=== PATIENT | female | born 1955 | race Caucasian/White ===

== ENCOUNTER → 2017-08-26 | Outpatient (CLI) | payer MEDICARE, OTHER | LOC: M PAIN 11:15 | DX: M79.1 Myalgia (principal); M54.2 Cervicalgia; M54.40 Lumbago with sciatica, unspecified side; G43.909 Migraine, unspecified, not intractable, without status migrainosus; E03.9 Hypothyroidism, unspecified; F17.210 Nicotine dependence, cigarettes, uncomplicated; Z79.899 Other long term (current) drug therapy; Z88.1 Allergy status to other antibiotic agents | CPT/HCPCS: G0463 ==

== ENCOUNTER → 2017-10-09 | Outpatient (CLI) | payer MEDICARE, OTHER ==
[~2017-10-09] MED LIST: BUPIVACAINE HCL 0.25% 10 ML VIAL As Ordered; BUPIVACAINE HCL 0.25% 30 ML VIAL As Ordered; TRIAMCINOLONE ACETONIDE SUSP 40 MG/ML VIAL (J3301) As Ordered; diazePAM 5 MG TAB As Ordered; oxyCODONE 5MG TAB As Ordered
== END ==
LOC: M PAIN 15:15
DX: M79.1 Myalgia (principal); E03.9 Hypothyroidism, unspecified; Z79.899 Other long term (current) drug therapy; Z88.8 Allergy status to other drugs, medicaments and biological substances
CPT/HCPCS: J3301

== ENCOUNTER → 2017-10-27 | Outpatient (CLI) | payer MEDICARE, OTHER | LOC: M PAIN 13:45 | DX: M54.2 Cervicalgia (principal); M54.40 Lumbago with sciatica, unspecified side; M79.1 Myalgia; G43.909 Migraine, unspecified, not intractable, without status migrainosus; M19.90 Unspecified osteoarthritis, unspecified site; E03.9 Hypothyroidism, unspecified; F41.9 Anxiety disorder, unspecified; G47.30 Sleep apnea, unspecified; F17.200 Nicotine dependence, unspecified, uncomplicated; Z79.899 Other long term (current) drug therapy; Z88.8 Allergy status to other drugs, medicaments and biological substances; Z98.84 Bariatric surgery status | CPT/HCPCS: G0463 ==

== ENCOUNTER → 2017-11-14 | Outpatient (CLI) | payer MEDICARE, OTHER | LOC: M PAIN 11:45 | DX: G89.29 Other chronic pain (principal); M79.1 Myalgia; G43.709 Chronic migraine without aura, not intractable, without status migrainosus; M54.5 Low back pain; G47.30 Sleep apnea, unspecified; E03.9 Hypothyroidism, unspecified; F41.9 Anxiety disorder, unspecified; Z88.1 Allergy status to other antibiotic agents | CPT/HCPCS: J3301 ==

== ENCOUNTER → 2018-01-05 | Outpatient (CLI) | payer MEDICARE, OTHER | LOC: M PAIN 11:45 | DX: M79.1 Myalgia (principal); M54.2 Cervicalgia; M54.40 Lumbago with sciatica, unspecified side; M96.1 Postlaminectomy syndrome, not elsewhere classified; G43.909 Migraine, unspecified, not intractable, without status migrainosus; M19.90 Unspecified osteoarthritis, unspecified site; G47.30 Sleep apnea, unspecified; E03.9 Hypothyroidism, unspecified; F41.9 Anxiety disorder, unspecified; F17.200 Nicotine dependence, unspecified, uncomplicated; Z79.899 Other long term (current) drug therapy; Z88.8 Allergy status to other drugs, medicaments and biological substances; Z98.84 Bariatric surgery status | CPT/HCPCS: G0463 ==

== ENCOUNTER → 2018-01-12 | Outpatient (CLI) | payer MEDICARE, OTHER ==
[~2018-01-12] MED LIST changes: -BUPIVACAINE HCL 0.25% 10 ML VIAL As Ordered; -BUPIVACAINE HCL 0.25% 30 ML VIAL As Ordered; +ISOVUE-M 300 61% 15ML VIAL (Q9967) As Ordered; +LIDOCAINE 1% SDV INJ 30 ML VIAL As Ordered; -TRIAMCINOLONE ACETONIDE SUSP 40 MG/ML VIAL (J3301) As Ordered; +diphenhydrAMINE 25 MG CAP As Ordered; +methylPREDNISolone SUSP 40 MG/ML (DEPO-medrol) VIAL (J1030) As Ordered
== END ==
LOC: M PAIN 10:30
DX: G89.29 Other chronic pain (principal); M96.1 Postlaminectomy syndrome, not elsewhere classified; G43.709 Chronic migraine without aura, not intractable, without status migrainosus; G47.30 Sleep apnea, unspecified; E03.9 Hypothyroidism, unspecified; F41.9 Anxiety disorder, unspecified; M54.81 Occipital neuralgia; F17.210 Nicotine dependence, cigarettes, uncomplicated; Z79.899 Other long term (current) drug therapy; Z98.1 Arthrodesis status; Z98.84 Bariatric surgery status; Z88.1 Allergy status to other antibiotic agents
CPT/HCPCS: J1030

== ENCOUNTER → 2018-01-29 | Outpatient (CLI) | payer MEDICARE, OTHER | LOC: M PAIN 14:15 | DX: M96.1 Postlaminectomy syndrome, not elsewhere classified (principal); M47.897 Other spondylosis, lumbosacral region; G43.909 Migraine, unspecified, not intractable, without status migrainosus; E03.9 Hypothyroidism, unspecified; F41.9 Anxiety disorder, unspecified; G47.30 Sleep apnea, unspecified; M19.90 Unspecified osteoarthritis, unspecified site; F17.200 Nicotine dependence, unspecified, uncomplicated; Z79.899 Other long term (current) drug therapy; Z88.8 Allergy status to other drugs, medicaments and biological substances | CPT/HCPCS: G0463 ==

== ENCOUNTER → 2019-03-18 | Outpatient (CLI) | payer MEDICARE, OTHER ==
[~2019-03-18] MED LIST changes: +ATIV0.5T3 PO; +CELE1CAP4 PO; +CYCL7.5T2 PO; +CYMB60CA3 PO; +GREE150C3 PO; +GREE400C PO; -ISOVUE-M 300 61% 15ML VIAL (Q9967) As Ordered; +LEVO25TABR GT; -LIDOCAINE 1% SDV INJ 30 ML VIAL As Ordered; +MORP15TA2 PO; +NORCOBULK PO; +PROV100T2 PO; +RELP40TA PO; +SYNT25TA PO; +[UNRECOGNIZED DRUG - OTHER]; -diazePAM 5 MG TAB As Ordered; -diphenhydrAMINE 25 MG CAP As Ordered; -methylPREDNISolone SUSP 40 MG/ML (DEPO-medrol) VIAL (J1030) As Ordered; -oxyCODONE 5MG TAB As Ordered
--- NOTE | 2019-04-07 02:02 | ECWPNPC ---
PATIENT NAME: LOYD BURNETT : 1955 GENDER: FEMALE VISIT DATE: 03/18/2019 DISCHARGE DATE: 03/18/19850 VISIT LOCKED DATE TIME: PHYSICIAN: GANESH MEDEL RESOURCE: GANESH MEDEL REASON FOR APPOINTMENT 1. PREVIOUS PT- REESTABLISH CARE LOW BACK HISTORY OF PRESENT ILLNESS HISTORY OF PRESENT ILLNESS: HERE FOR F/U OF CHRONIC LBP WITH HX OF LUMBAR FUSION IN 2006.REPORTING NEW ONSET OF RIGHT LBP WITH RADIATION INTO RIGHT THIGH.RATING PAIN VAS 8/10. PAIN THE PATIENT DESCRIBES THE PAIN... FALL RISK SCREENING: SCREENING :NO FALLS REPORTED IN THE LAST YEAR CURRENT MEDICATIONS TAKING LEVOTHYROXINE SODIUM 75 MCG TABLET 1 TABLET ON AN EMPTY STOMACH IN THE MORNING ORALLY ONCE A DAY TAKING FISH OIL 1200 MG CAPSULE DELAYED RELEASE 2 CAPSULE ORALLY TWICE A DAY TAKING CELEBREX 100 MG CAPSULE 1 CAPSULE WITH FOOD ORALLY BID TAKING [id number] 50-300-40 MG CAPSULE 1 CAPSULE NEEDED ORALLY EVERY 4 HRS NEEDED TAKING FUROSEMIDE 20 MG TABLET 1 TABLET ORALLY ONCE A DAY TAKING POTASSIUM CHLORIDE ANNETTE ER 10 MEQ TABLET EXTENDED RELEASE 1 TABLET WITH FOOD ORALLY ONCE A DAY TAKING MULTIVITAMIN ADULT - TABLET ORALLY TWICE DAILY TAKING GABAPENTIN 300 MG TABLET 1 TABLET ORALLY FOUR TIMES A DAY TAKING FLUTICASONE PROPIONATE 50 MCG/ACT SUSPENSION 1 SPRAY IN EACH NOSTRIL NASALLY ONCE A DAY TAKING BUPROPION HCL 75 MG TABLET 1 TABLET ORALLY BID TAKING VOLTAREN 1 % GEL TRANSDERMAL TAKING RELPAX 40 MG TABLET 1 TABLET NEEDED ONE TIME ORALLY ONCE A DAY TAKING METOCLOPRAMIDE HCL 5 MG TABLET ORALLY NEEDED TAKING CALCIUM PLUS VITAMIN D 600-100 MG-UNIT CAPSULE 1 CAPSULE WITH A MEAL ORALLY ONCE A DAY TAKING ZOLPIDEM TARTRATE 10 MG TABLET 1 TABLET AT BEDTIME NEEDED ORALLY ONCE A DAY TAKING TIZANIDINE HCL 4 MG TABLET 1 TABLET NEEDED ORALLY THREE TIMES A DAY 30 TAB SHOULD LAST 30 DAYS TAKING MAGNESIUM 500 MG TABLET 1 TABLET WITH A MEAL ORALLY BID TAKING PEPCID 20 MG TABLET 1 TABLET ORALLY BID TAKING ZONISAMIDE 100 MG CAPSULE 1 CAPSULE ORALLY BID NOT-TAKING FAMOTIDINE 20 MG TABLET 1 TABLET AT BEDTIME ORALLY TWICE A DAY NOT-TAKING BACLOFEN 10 MG TABLET 1 TABLET WITH FOOD OR MILK ORALLY TWO TIMES A DAY NOT-TAKING TOPIRAMATE 100 MG TABLET 1 TABLET ORALLY TWICE A DAY NOT-TAKING LOTEMAX 0.5 % SUSPENSION 1 DROP INTO AFFECTED EYE OPHTHALMIC FOUR TIMES A DAY MEDICATION LIST REVIEWED AND RECONCILED WITH THE PATIENT PAST MEDICAL HISTORY CHRONIC MIGRAINE OCCIPITAL NEURALGIA, CERVICALGIA LOW BACK PAIN ARTHRITIS SLEEP APNEA (HAS CPAP) HYPOTHYROIDISM ANXIETY ALLERGIES CIPRO: DISORIENTATION - SIDE EFFECTS SURGICAL HISTORY 1984 1990 GASTRIC BYPASS 2001 L4-L5 L5-S1 FUSION 2005 C5-6 CERVICAL FUSION 2007 LAMINECTOMY 2013 FAMILY HISTORY FATHER: 48 YRS, DIAGNOSED WITH DIABETES, STROKE MOTHER: CANCER, DIABETES SIBLINGS: DIABETES SOCIAL HISTORY GENERAL: TOBACCO USE ARE YOU A:CURRENT SMOKER SOCIALLY ARE YOU INTERESTED IN QUITTING?NOT READY TO QUIT COUNSELED THE PATIENT ON SMOKING EFFECTS, EDUCATION [id number]/28/2018 PATIENT COUNSELED ON THE DANGERS OF TOBACCO USE AND URGED TO QUIT:01/29/2018 PAIN CLINIC PFS, CLERGY, PUBLIC HEALTH REFERRALS HAS THE PATIENT BEEN EDUCATED REGARDING HIS/HER PLAN OF CARE?YES HAS THE PATIENT BEEN EDUCATED REGARDING PAIN, THE RISK FOR PAIN, THE IMPORTANCE OF EFFECTIVE PAIN MANAGEMENT, AND THE PAIN ASSESSMENT PROCESS?YES CAFFEINE CAFFEINE USE?YES HOW OFTEN AND HOW MUCH? FEW CUPS DAILY ADVANCE DIRECTIVE ADVANCE DIRECTIVE DISCUSSED WITH PATIENT:YES PT DECLINES HCP INFORMATION AND ASSISTANCE WITH FORM 03/18/19 LANGUAGE LANGUAGES SPOKEN:[place] ALCOHOL SCREENING DID YOU HAVE A DRINK CONTAINING ALCOHOL IN THE PAST YEAR?YES HOW OFTEN DID YOU HAVE A DRINK CONTAINING ALCOHOL IN THE PAST YEAR?TWO TO FOUR TIMES A MONTH (2 POINTS) HOW MANY DRINKS DID YOU HAVE ON A TYPICAL DAY WHEN YOU WERE DRINKING IN THE PAST YEAR?1 OR 2 (0 POINTS) HOW OFTEN DID YOU HAVE SIX OR MORE DRINKS ON ONE OCCASION IN THE PAST YEAR?LESS THAN MONTHLY (1 POINT) POINTS3 INTERPRETATIONPOSITIVE RECREATIONAL DRUG USE DRUG USE?YES HOW OFTEN AND HOW MUCH? MARIJUANA OCCASIONALLY LEARNING BARRIERS / SPECIAL NEEDS HEARING IMPAIRED?NO VISION IMPAIRED?YES GLASSES READINESS TO LEARN?YES LEARNING PREFERENCES?NO SPECIAL DEVICES?NO REVIEWED WITH PT 03/18/19 0957 BV. HOSPITALIZATION/MAJOR DIAGNOSTIC PROCEDURE SURGERY RELATED REVIEW OF SYSTEMS REVIEWED BY: PROVIDER: GANESH INMAN . CONSTITUTIONAL: ANY CHANGE IN YOUR MEDICAL CONDITION? NO . CHILLS NO . FEVER NO . INFECTION: DO YOU HAVE NEW INFECTIONS? NO . DO YOU HAVE HISTORY OF MRSA? NO . MUSCULOSKELETAL: ANY NEW PATTERNS OF PAIN OR NUMBNESS? YES, PT STATES INTENSE PAIN IN RIGHT LEG SINCE . . GASTROENTEROLOGY: ANY NEW CHANGE IN BOWEL CONTROL? NO . GENITOURINARY: ANY NEW CHANGE IN BLADDER CONTROL? YES, PT STATES FEELS LIKE SHE CANNOT FULLY EMPTY HER BLADDER. STATES SHE IS ADDRESSING THIS WITH UROGYNOCOLOGIST IN [place] . IS THERE A CHANCE YOU COULD BE ? NO . HEMATOLOGY/LYMPH: DO YOU TAKE ANY BLOOD THINNERS? (FOR EXAMPLE- COUMADIN, PLAVIX, AGGRENOX, PLATEL, PRADAXA, OR XARELTO) NO . WHEN WAS YOUR LAST DOSE? DATE: TIME: . NEUROLOGY: HAVE YOU FALLEN IN THE PAST 12 MONTHS? YES PT REPORTS FALL LAST WEEK UP BACK DECK, STATES SHE IS HAVING TROUBLE FULLY LIFTING RIGHT LEG. HAS BRUISE TO RIGHT KNEE AND RUG RASH TO RIGHT ARM. DENIES ANY INJURIES BEYOND THIS AND DENIES ED VISIT . ANY NEW EXTREMITY NUMBNESS OR WEAKNESS? NO . CARDIOLOGY: DO YOU HAVE A PACEMAKER OR DEFIBRILLATOR? NO . RESPIRATORY: HAVE YOU BEEN SICK IN THE PAST WEEK? NO . FEVER NO . FLU LIKE SYMPTOMS? NO . COUGH NO . INTEGUMENTARY: DO YOU HAVE ANY RASHES OR OPEN SORES? NO . ALLERGIC/IMMUNO: ARE YOU ALLERGIC TO IV DYE? NO . ANY NEW ALLERGIES? NO . PSYCHIATRIC: DO YOU HAVE THOUGHTS OF HURTING YOURSELF OR SOMEONE ELSE? NO . ARE YOU ABUSED, NEGLECTED, OR IN AN UNSAFE ENVIRONMENT? NO . ENDOCRINOLOGY: ARE YOU DIABETIC? NO . OTHER: DO YOU NEED ANY PRESCRIPTIONS? NO . IF YES, PLEASE LIST: ____ . ANY NEW PROBLEMS WITH YOUR MEDICATIONS? NO . WHEN DID YOU LAST EAT? ____ . WHEN DID YOU LAST DRINK? ____ . WHAT DID YOU LAST DRINK? ____ . NAME OF PERSON DRIVING YOU HOME? ____ . DO YOU HAVE ANY OTHER QUESTIONS OR CONCERNS NO . VITAL SIGNS WT 153.2 LBS, HT 63 IN, BMI 27.14 INDEX, BP 128/72 MM HG, HR 82 /MIN, RR 16 /MIN, TEMP 96.0 F, OXYGEN SAT % 100%, NA INITIALS AW 0954, REVIEWED BY: BV. EXAMINATION GENERAL EXAMINATION: GENERAL ALERT,NO DISTRESS . PSYCH AFFECT NORMAL . LUNGS: LUNG SOUNDS ARE CLEAR . HEART: HEART RATE REGULAR . MUSCULOSKELETAL: MST 5/5 BILAT. LOWER EXTREMITIES . LUMBAR SACRAL SPINETENDERNESS RIGHT. SIJ .POSITIVE FRANCIE TEST RIGHT. DIAGNOSTIC TESTS REVIEWEDMRI L/S [id number] . ASSESSMENTS SACROILIITIS - M46.1 (PRIMARY) TREATMENT SACROILIITIS NOTES: RIGHT SIJ. PREVENTIVE MEDICINE PAIN CLINIC TEACHING: PROCEDURE TEACHING PT GIVEN WRITTEN AND VERBAL EDUCATION ON SACROILIAC JOINT INJECTIONS, ALSO GIVEN WRITTEN AND VERBAL PRE PROCEDURE INSTRUCTIONS. PT VERBALIZES UNDERSTANDING OF ALL INSTRUCTIONS AND EDUCATION. GRAEME WHYTE 03/18/2019 10:54:32 AM > . PROCEDURE CODES FA211 ESTABILISHED PATIENT [facility] CHARGE DISPOSITION & COMMUNICATION FOLLOW UP POST (REASON: RIGHT SIJ) ELECTRONICALLY SIGNED BY STORM BOJORQUEZ ON 04/06/2019 AT 04:42 PM EDT DISCLAIMER : THIS IS A VISIT SUMMARY EXTRACTED FROM THE [employer] CHART. IT IS NOT A COPY OF THE [employer] PROGRESS NOTE. JOHNATHAN
== END ==
LOC: M PAIN 09:45
PROVIDERS: ATTEND Nurse Practitioner Family
DX: M46.1 Sacroiliitis, not elsewhere classified (principal); G89.29 Other chronic pain; G43.909 Migraine, unspecified, not intractable, without status migrainosus; M19.90 Unspecified osteoarthritis, unspecified site; G47.30 Sleep apnea, unspecified; E03.9 Hypothyroidism, unspecified; Z86.59 Personal history of other mental and behavioral disorders; Z98.84 Bariatric surgery status; F17.210 Nicotine dependence, cigarettes, uncomplicated; Z88.1 Allergy status to other antibiotic agents; Z79.899 Other long term (current) drug therapy

== ENCOUNTER → 2019-04-08 | Outpatient (CLI) | payer MEDICARE, OTHER ==
[~2019-04-08] MED LIST changes: +BUPIVACAINE HCL 0.25% 30 ML VIAL As Ordered ONE; +ISOVUE-M 300 61% 15ML VIAL (Q9967) As Ordered ONE; +LIDOCAINE 1% SDV INJ 30 ML VIAL As Ordered ONE; +TRIAMCINOLONE ACETONIDE SUSP 40 MG/ML VIAL (J3301) As Ordered ONE; +diazePAM 5 MG TAB As Ordered ONE; +diphenhydrAMINE 25 MG CAP As Ordered ONE; +oxyCODONE 5MG TAB As Ordered ONE
--- NOTE | 2019-04-08 13:44 | REP ---
RIGHT SI JOINT: SINGLE VIEW. HISTORY: Right sacroiliac joint injection for pain. 18 seconds of fluoroscopy time is reported. FINDINGS: A single last image hold fluoroscopically obtained spot radiograph of the right SI joint documents needle position and contrast injection associated with injection procedure. Electronically Signed by Yamil Lam MD 04/08/2019 01:47 P
--- NOTE | 2019-04-21 00:40 | ECWPNPC ---
PATIENT NAME: LOYD BURNETT : 1955 GENDER: FEMALE VISIT DATE: 04/08/2019 DISCHARGE DATE: 04/08/19 1344 VISIT LOCKED DATE TIME: PHYSICIAN: JOEL STRICKLAND MD RESOURCE: JOEL STRICKLAND MD REASON FOR APPOINTMENT 1. RIGHT SIJ HISTORY OF PRESENT ILLNESS HISTORY OF PRESENT ILLNESS: PAIN THE PATIENT DESCRIBES THE PAIN... FALL RISK SCREENING: SCREENING :NO FALLS REPORTED IN THE LAST YEAR CURRENT MEDICATIONS TAKING FAMOTIDINE 20 MG TABLET 1 TABLET AT BEDTIME ORALLY TWICE A DAY TAKING LEVOTHYROXINE SODIUM 75 MCG TABLET 1 TABLET ON AN EMPTY STOMACH IN THE MORNING ORALLY ONCE A DAY TAKING FISH OIL 1200 MG CAPSULE DELAYED RELEASE 2 CAPSULE ORALLY TWICE A DAY TAKING [id number] 50-300-40 MG CAPSULE 1 CAPSULE NEEDED ORALLY EVERY 4 HRS NEEDED TAKING FUROSEMIDE 20 MG TABLET 1 TABLET ORALLY ONCE A DAY TAKING POTASSIUM CHLORIDE ANNETTE ER 10 MEQ TABLET EXTENDED RELEASE 1 TABLET WITH FOOD ORALLY ONCE A DAY TAKING MULTIVITAMIN ADULT - TABLET ORALLY TWICE DAILY TAKING GABAPENTIN 300 MG TABLET 1 TABLET ORALLY FOUR TIMES A DAY TAKING FLUTICASONE PROPIONATE 50 MCG/ACT SUSPENSION 1 SPRAY IN EACH NOSTRIL NASALLY ONCE A DAY TAKING BUPROPION HCL 75 MG TABLET 1 TABLET ORALLY BID TAKING VOLTAREN 1 % GEL TRANSDERMAL TAKING RELPAX 40 MG TABLET 1 TABLET NEEDED ONE TIME ORALLY ONCE A DAY TAKING METOCLOPRAMIDE HCL 5 MG TABLET ORALLY NEEDED TAKING CALCIUM PLUS VITAMIN D 600-100 MG-UNIT CAPSULE 1 CAPSULE WITH A MEAL ORALLY ONCE A DAY TAKING ZOLPIDEM TARTRATE 10 MG TABLET 1 TABLET AT BEDTIME NEEDED ORALLY ONCE A DAY TAKING TIZANIDINE HCL 4 MG TABLET 1 TABLET NEEDED ORALLY THREE TIMES A DAY 30 TAB SHOULD LAST 30 DAYS TAKING MAGNESIUM 500 MG TABLET 1 TABLET WITH A MEAL ORALLY BID TAKING PEPCID 20 MG TABLET 1 TABLET ORALLY BID NOT-TAKING BACLOFEN 10 MG TABLET 1 TABLET WITH FOOD OR MILK ORALLY TWO TIMES A DAY NOT-TAKING CELEBREX 100 MG CAPSULE 1 CAPSULE WITH FOOD ORALLY BID UNKNOWN TOPIRAMATE 100 MG TABLET 1 TABLET ORALLY TWICE A DAY UNKNOWN LOTEMAX 0.5 % SUSPENSION 1 DROP INTO AFFECTED EYE OPHTHALMIC FOUR TIMES A DAY UNKNOWN ZONISAMIDE 100 MG CAPSULE 1 CAPSULE ORALLY BID MEDICATION LIST REVIEWED AND RECONCILED WITH THE PATIENT PAST MEDICAL HISTORY CHRONIC MIGRAINE OCCIPITAL NEURALGIA, CERVICALGIA LOW BACK PAIN ARTHRITIS SLEEP APNEA (HAS CPAP) HYPOTHYROIDISM ANXIETY ALLERGIES CIPRO: DISORIENTATION - SIDE EFFECTS SURGICAL HISTORY 1984 1990 GASTRIC BYPASS 2001 L4-L5 L5-S1 FUSION 2005 C5-6 CERVICAL FUSION 2006 LAMINECTOMY 2013 FAMILY HISTORY FATHER: 48 YRS, DIAGNOSED WITH DIABETES, UNSPECIFIED CEREBRAL ARTERY OCCLUSION WITH CEREBRAL INFARCTION MOTHER: DIABETES, OTHER MALIGNANT NEOPLASM OF UNSPECIFIED SITE SIBLINGS: DIABETES SOCIAL HISTORY GENERAL: TOBACCO USE ARE YOU A:CURRENT SMOKER SOCIALLY ARE YOU INTERESTED IN QUITTING?NOT READY TO QUIT COUNSELED THE PATIENT ON SMOKING EFFECTS, EDUCATION [id number]/28/2018 HOW MANY CIGARETTES A DAY DO YOU SMOKE?5 OR LESS PATIENT COUNSELED ON THE DANGERS OF TOBACCO USE AND URGED TO QUIT:01/29/2018 SMOKING CESSATION INFORMATION GIVEN04/08/2019 PAIN CLINIC PFS, CLERGY, PUBLIC HEALTH REFERRALS HAS THE PATIENT BEEN EDUCATED REGARDING HIS/HER PLAN OF CARE?YES HAS THE PATIENT BEEN EDUCATED REGARDING PAIN, THE RISK FOR PAIN, THE IMPORTANCE OF EFFECTIVE PAIN MANAGEMENT, AND THE PAIN ASSESSMENT PROCESS?YES CAFFEINE CAFFEINE USE?YES HOW OFTEN AND HOW MUCH? FEW CUPS DAILY ADVANCE DIRECTIVE ADVANCE DIRECTIVE DISCUSSED WITH PATIENT:YES PT DECLINES HCP INFORMATION AND ASSISTANCE WITH FORM 03/18/19 LANGUAGE LANGUAGES SPOKEN:[place] ALCOHOL SCREENING DID YOU HAVE A DRINK CONTAINING ALCOHOL IN THE PAST YEAR?YES HOW OFTEN DID YOU HAVE SIX OR MORE DRINKS ON ONE OCCASION IN THE PAST YEAR?LESS THAN MONTHLY (1 POINT) HOW MANY DRINKS DID YOU HAVE ON A TYPICAL DAY WHEN YOU WERE DRINKING IN THE PAST YEAR?1 OR 2 (0 POINTS) HOW OFTEN DID YOU HAVE A DRINK CONTAINING ALCOHOL IN THE PAST YEAR?TWO TO FOUR TIMES A MONTH (2 POINTS) POINTS3 INTERPRETATIONPOSITIVE RECREATIONAL DRUG USE DRUG USE?YES HOW OFTEN AND HOW MUCH? MARIJUANA OCCASIONALLY LEARNING BARRIERS / SPECIAL NEEDS HEARING IMPAIRED?NO VISION IMPAIRED?YES GLASSES READINESS TO LEARN?YES LEARNING PREFERENCES?NO SPECIAL DEVICES?NO REVIEWED WITH PT 03/18/19 0957 BV. HOSPITALIZATION/MAJOR DIAGNOSTIC PROCEDURE SURGERY RELATED REVIEW OF SYSTEMS REVIEWED BY: PROVIDER: . CONSTITUTIONAL: ANY CHANGE IN YOUR MEDICAL CONDITION? NO . CHILLS NO . FEVER NO . INFECTION: DO YOU HAVE NEW INFECTIONS? NO . DO YOU HAVE HISTORY OF MRSA? NO . MUSCULOSKELETAL: ANY NEW PATTERNS OF PAIN OR NUMBNESS? NO . GASTROENTEROLOGY: ANY NEW CHANGE IN BOWEL CONTROL? NO . GENITOURINARY: ANY NEW CHANGE IN BLADDER CONTROL? NO . IS THERE A CHANCE YOU COULD BE ? NO . HEMATOLOGY/LYMPH: DO YOU TAKE ANY BLOOD THINNERS? (FOR EXAMPLE- COUMADIN, PLAVIX, AGGRENOX, PLATEL, PRADAXA, OR XARELTO) NO . WHEN WAS YOUR LAST DOSE? DATE: TIME: . NEUROLOGY: HAVE YOU FALLEN IN THE PAST 12 MONTHS? NO . ANY NEW EXTREMITY NUMBNESS OR WEAKNESS? NO . CARDIOLOGY: DO YOU HAVE A PACEMAKER OR DEFIBRILLATOR? NO . RESPIRATORY: HAVE YOU BEEN SICK IN THE PAST WEEK? NO . FEVER NO . FLU LIKE SYMPTOMS? NO . COUGH NO . INTEGUMENTARY: DO YOU HAVE ANY RASHES OR OPEN SORES? NO . ALLERGIC/IMMUNO: ARE YOU ALLERGIC TO IV DYE? NO . ANY NEW ALLERGIES? NO . PSYCHIATRIC: DO YOU HAVE THOUGHTS OF HURTING YOURSELF OR SOMEONE ELSE? NO . ARE YOU ABUSED, NEGLECTED, OR IN AN UNSAFE ENVIRONMENT? NO . ENDOCRINOLOGY: ARE YOU DIABETIC? NO . OTHER: DO YOU NEED ANY PRESCRIPTIONS? NO . IF YES, PLEASE LIST: ____ . ANY NEW PROBLEMS WITH YOUR MEDICATIONS? NO . WHEN DID YOU LAST EAT? ____[id number] . WHEN DID YOU LAST DRINK? ____04-08-19 043 . WHAT DID YOU LAST DRINK? ____WATER . NAME OF PERSON DRIVING YOU HOME? ____BRENDA LEVY . DO YOU HAVE ANY OTHER QUESTIONS OR CONCERNS NO . VITAL SIGNS WT 152.2 LBS, HT 63 IN, BMI 26.96 INDEX, BP 140/68 MM HG, HR 71 /MIN, RR 16 /MIN, TEMP 97.6 F, OXYGEN SAT % 99%, SAFE IN ENV? (Y/N) YES, NA INITIALS AW 1117, REVIEWED BY: KG. ASSESSMENTS SACROILIITIS - M46.1 (PRIMARY) TREATMENT SACROILIITIS [facility] FLUORO GUIDANCE (PAIN)[id number] PROCEDURES PN SI PRE PROCEDURE DIAGNOSIS SACROILIITIS, SACROILIAC JOINT DYSFUNCTION POST PROCEDURE DIAGNOSIS SACROILIITIS, SACROILIAC JOINT DYSFUNCTION PROCEDURE RIGHT SACROILIAC JOINT BLOCK SURGEON DR. JOEL STRICKLAND TOURIST ESCORT NONE ANESTHESIA LOCAL PRE PROCEDURE NOTE PATIENT WITH HISTORY OF CHRONIC LOW BACK PAIN. I EVALUATED THE PATIENT AND REVIEWED THE CHART. I WENT OVER THE RISKS, ALTERNATIVES, AND BENEFITS ASSOCIATED WITH THIS PROCEDURE. THE PATIENT WOULD LIKE TO PROCEED AND GAVE CONSENT TO PERFORM THE PROCEDURE. THE PATIENT DENIES UNEXPLAINABLE WEIGHT LOSS, FEVER, CHILLS, OR NEW CHANGES IN URINARY OR BOWEL CONTROL DESCRIPTION OF PROCEDURE THE PATIENT WAS BROUGHT TO THE PROCEDURE ROOM AND PLACED IN THE PRONE POSITION. THE LUMBOSACRAL AREA WAS CLEANED WITH CHLORAPREP SOLUTION AND DRAPED ASEPTICALLY. THE PROCEDURE WAS DONE UNDER STERILE CONDITIONS. I CHECKED LATERALITY AND THE LEVEL WHERE THE PROCEDURE WAS GOING TO BE PERFORMED WITH THE PATIENT AND THE SUPPORTING STAFF AT THE MOMENT OF THE TIME OUT IN THE PROCEDURE ROOM. UNDER FLUOROSCOPIC GUIDANCE, TARGET POINT WAS SELECTED AT THE LOWER BORDER OF THE RIGHT SACROILIAC JOINT. TARGET POINT WAS SELECTED AFTER MEDIAL ROTATION AND TILT OF THE MAGNIFIER OF THE C-ARM. LIDOCAINE WAS USED TO NUMB THE SKIN AND SUBCUTANEOUS TISSUE BELOW IT. A SPINAL NEEDLE, 22-GAUGE, WAS ADVANCED UNDER FLUOROSCOPIC GUIDANCE AND FOLLOWING PATIENT FEEDBACK UNTIL THE TARGET AREA WAS TOUCHED. THE POSITION OF THE NEEDLE WAS VERIFIED WITH AP AND LATERAL VIEWS. AFTER PROPER POSITION OF THE NEEDLE WAS ACHIEVED, ISOVUE M DYE 30%, 0.25 ML, WAS INJECTED SHOWING SPREAD OF THE DYE. THEN, A SOLUTION OF 30 MG OF KENALOG WAS INJECTED IN RIGHT JOINT WITH 3 ML OF BUPIVACAINE 0.125%. THERE WAS NO EVIDENCE OF BLOOD, PARESTHESIA OR CEREBROSPINAL FLUID DURING THE PROCEDURE. THE PATIENT WAS SENT TO THE RECOVERY ROOM. THE PATIENT WAS MOVING THE EXTREMITIES AND DOING WELL. THERE WAS NO COMPLICATION DURING THE PROCEDURE. FLUOROSCOPY TIME WAS 18 SECONDS POST PROCEDURE NOTE THE PATIENT WILL BE SEEN IN A FOLLOW UP IN THE NEXT FEW WEEKS. INSTRUCTIONS WERE GIVEN, QUESTIONS WERE ANSWERED, AND THE PATIENT EXPRESSED UNDERSTANDING AND AGREED WITH THE PLAN. I, DANIEL BERMEO, DOCUMENTED THE ABOVE INFORMATION ACTING A SCRIBE FOR DR. STRICKLAND. I HAVE REVIEWED THE ABOVE DOCUMENT, WRITTEN BY DANIEL BERMEO SCRIBWillis AND I VERIFY THAT IT IS ACCURATE. PROCEDURE CODES 48945 INJECT SACROILIAC JOINT, MODIFIERS: RT 6045F RADXPS IN END [id number] [id number] DISPOSITION & COMMUNICATION FOLLOW UP 3 WEEKS ELECTRONICALLY SIGNED BY JOEL STRICKLAND MD, MD ON 04/20/2019 AT 12:05 PM EDT DISCLAIMER : THIS IS A VISIT SUMMARY EXTRACTED FROM THE [employer] CHART. IT IS NOT A COPY OF THE [employer] PROGRESS NOTE. MTDD
== END ==
LOC: M PAIN 11:00
PROVIDERS: ATTEND Anesthesiology
DX: M46.1 Sacroiliitis, not elsewhere classified (principal); G43.709 Chronic migraine without aura, not intractable, without status migrainosus; G47.30 Sleep apnea, unspecified; E03.9 Hypothyroidism, unspecified; F41.9 Anxiety disorder, unspecified; M54.81 Occipital neuralgia; F17.210 Nicotine dependence, cigarettes, uncomplicated; Z98.84 Bariatric surgery status; Z98.1 Arthrodesis status; Z79.899 Other long term (current) drug therapy; Z88.1 Allergy status to other antibiotic agents
CPT/HCPCS: G0260; J3301; Q9967

== ENCOUNTER → 2019-04-21 | Outpatient (CLI) | payer MEDICARE, OTHER ==
[~2019-04-21] MED LIST changes: -BUPIVACAINE HCL 0.25% 30 ML VIAL As Ordered ONE; -ISOVUE-M 300 61% 15ML VIAL (Q9967) As Ordered ONE; -LIDOCAINE 1% SDV INJ 30 ML VIAL As Ordered ONE; -TRIAMCINOLONE ACETONIDE SUSP 40 MG/ML VIAL (J3301) As Ordered ONE; -diazePAM 5 MG TAB As Ordered ONE; -diphenhydrAMINE 25 MG CAP As Ordered ONE; -oxyCODONE 5MG TAB As Ordered ONE
== END ==
LOC: M PAIN 14:00
PROVIDERS: ATTEND Nurse Practitioner Family
DX: M96.1 Postlaminectomy syndrome, not elsewhere classified (principal); M47.897 Other spondylosis, lumbosacral region; G43.909 Migraine, unspecified, not intractable, without status migrainosus; G47.30 Sleep apnea, unspecified; E03.9 Hypothyroidism, unspecified; Z86.59 Personal history of other mental and behavioral disorders; Z98.84 Bariatric surgery status; F17.210 Nicotine dependence, cigarettes, uncomplicated; Z88.1 Allergy status to other antibiotic agents; Z79.899 Other long term (current) drug therapy

== ENCOUNTER → 2019-06-15 | Outpatient (CLI) | payer MEDICARE, OTHER ==
--- NOTE | 2019-06-23 02:57 | ECWPNPC ---
PATIENT NAME: LOYD BURNETT : 1955 GENDER: FEMALE VISIT DATE: 06/15/2019 DISCHARGE DATE: 06/15/19 1247 VISIT LOCKED DATE TIME: PHYSICIAN: JOEL STRICKLAND MD RESOURCE: JOEL STRICKLAND MD REASON FOR APPOINTMENT 1. CAUDAL LESI RIGHT HISTORY OF PRESENT ILLNESS HISTORY OF PRESENT ILLNESS: PAIN THE PATIENT DESCRIBES THE PAIN... 63 YEAR OLD FEMALE PATIENT WITH A HISTORY OF CHRONIC LOW BACK AND LEG PAIN. THE PATIENT DESCRIBES THE PAIN ACHING, BURNING, AND CONTINUOUS WITH A PAIN SCORE OF 3-10/10 DEPENDING ON PHYSICAL ACTIVITY. THE PATIENT STATES SHE IS EXPERIENCING A NEW RADIATING PAIN DOWN HER RIGHT LEG THAT SHE HAS NOT ENCOUNTERED BEFORE. THE PATIENT SAYS SHE HAS BEEN SUFFERING FROM HER PAIN FOR MANY YEARS. THE PATIENT SAYS SHE HAS A HISTORY OF BACK SURGERY THAT WAS APPROXIMATELY DONE IN 2004. PATIENT DENIES UNEXPLAINABLE WEIGHT LOSS, FEVER, CHILLS, NEW CHANGES ON HER URINARY OR BOWEL CONTROL. FALL RISK SCREENING: SCREENING :NO FALLS REPORTED IN THE LAST YEAR CURRENT MEDICATIONS TAKING FAMOTIDINE 20 MG TABLET 1 TABLET AT BEDTIME ORALLY TWICE A DAY TAKING LEVOTHYROXINE SODIUM 75 MCG TABLET 1 TABLET ON AN EMPTY STOMACH IN THE MORNING ORALLY ONCE A DAY TAKING FISH OIL 1200 MG CAPSULE DELAYED RELEASE 2 CAPSULE ORALLY TWICE A DAY TAKING [id number] 50-300-40 MG CAPSULE 1 CAPSULE NEEDED ORALLY EVERY 4 HRS NEEDED TAKING FUROSEMIDE 20 MG TABLET 1 TABLET ORALLY ONCE A DAY, NOTES: NEEDED TAKING POTASSIUM CHLORIDE ANNETTE ER 10 MEQ TABLET EXTENDED RELEASE 1 TABLET WITH FOOD ORALLY ONCE A DAY, NOTES: NEEDED TAKING MULTIVITAMIN ADULT - TABLET ORALLY TWICE DAILY TAKING GABAPENTIN 300 MG TABLET 1 TABLET ORALLY FOUR TIMES A DAY TAKING FLUTICASONE PROPIONATE 50 MCG/ACT SUSPENSION 1 SPRAY IN EACH NOSTRIL NASALLY ONCE A DAY TAKING BUPROPION HCL 75 MG TABLET 1 TABLET ORALLY BID TAKING VOLTAREN 1 % GEL TRANSDERMAL TAKING RELPAX 40 MG TABLET 1 TABLET NEEDED ONE TIME ORALLY ONCE A DAY TAKING METOCLOPRAMIDE HCL 5 MG TABLET ORALLY NEEDED TAKING CALCIUM PLUS VITAMIN D 600-100 MG-UNIT CAPSULE 1 CAPSULE WITH A MEAL ORALLY ONCE A DAY TAKING ZOLPIDEM TARTRATE 10 MG TABLET 1 TABLET AT BEDTIME NEEDED ORALLY ONCE A DAY TAKING MAGNESIUM 500 MG TABLET 1 TABLET WITH A MEAL ORALLY BID TAKING PEPCID 20 MG TABLET 1 TABLET ORALLY BID TAKING TIZANIDINE HCL 4 MG TABLET 1 TABLET NEEDED ORALLY THREE TIMES A DAY 30 TAB SHOULD LAST 30 DAYS UNKNOWN BACLOFEN 10 MG TABLET 1 TABLET WITH FOOD OR MILK ORALLY TWO TIMES A DAY UNKNOWN CELEBREX 100 MG CAPSULE 1 CAPSULE WITH FOOD ORALLY BID UNKNOWN TOPIRAMATE 100 MG TABLET 1 TABLET ORALLY TWICE A DAY UNKNOWN LOTEMAX 0.5 % SUSPENSION 1 DROP INTO AFFECTED EYE OPHTHALMIC FOUR TIMES A DAY UNKNOWN ZONISAMIDE 100 MG CAPSULE 1 CAPSULE ORALLY BID MEDICATION LIST REVIEWED AND RECONCILED WITH THE PATIENT PAST MEDICAL HISTORY CHRONIC MIGRAINE OCCIPITAL NEURALGIA, CERVICALGIA LOW BACK PAIN ARTHRITIS SLEEP APNEA (HAS CPAP) HYPOTHYROIDISM ANXIETY ALLERGIES CIPRO: DISORIENTATION - SIDE EFFECTS SURGICAL HISTORY 1984 1990 GASTRIC BYPASS 2001 L4-L5 L5-S1 FUSION 2005 C5-6 CERVICAL FUSION 2007 LAMINECTOMY 2013 FAMILY HISTORY FATHER: 48 YRS, DIAGNOSED WITH DIABETES, UNSPECIFIED CEREBRAL ARTERY OCCLUSION WITH CEREBRAL INFARCTION MOTHER: DIABETES, OTHER MALIGNANT NEOPLASM OF UNSPECIFIED SITE SIBLINGS: DIABETES HOSPITALIZATION/MAJOR DIAGNOSTIC PROCEDURE SURGERY RELATED REVIEW OF SYSTEMS REVIEWED BY: PROVIDER: JOEL STRICKLAND MD . CONSTITUTIONAL: ANY CHANGE IN YOUR MEDICAL CONDITION? NO . CHILLS NO . FEVER NO . INFECTION: DO YOU HAVE NEW INFECTIONS? NO . DO YOU HAVE HISTORY OF MRSA? NO . MUSCULOSKELETAL: ANY NEW PATTERNS OF PAIN OR NUMBNESS? YES SENSATION OF WATER RUNNING DOWN LEG . GASTROENTEROLOGY: ANY NEW CHANGE IN BOWEL CONTROL? NO . GENITOURINARY: ANY NEW CHANGE IN BLADDER CONTROL? NO . IS THERE A CHANCE YOU COULD BE ? NO . HEMATOLOGY/LYMPH: DO YOU TAKE ANY BLOOD THINNERS? (FOR EXAMPLE- COUMADIN, PLAVIX, AGGRENOX, PLATEL, PRADAXA, OR XARELTO) NO . WHEN WAS YOUR LAST DOSE? DATE: TIME: . NEUROLOGY: HAVE YOU FALLEN IN THE PAST 12 MONTHS? YES . ANY NEW EXTREMITY NUMBNESS OR WEAKNESS? YES . CARDIOLOGY: DO YOU HAVE A PACEMAKER OR DEFIBRILLATOR? NO . RESPIRATORY: HAVE YOU BEEN SICK IN THE PAST WEEK? NO . FEVER NO . FLU LIKE SYMPTOMS? NO . COUGH NO . INTEGUMENTARY: DO YOU HAVE ANY RASHES OR OPEN SORES? NO . ALLERGIC/IMMUNO: ARE YOU ALLERGIC TO IV DYE? NO . ANY NEW ALLERGIES? NO . PSYCHIATRIC: DO YOU HAVE THOUGHTS OF HURTING YOURSELF OR SOMEONE ELSE? NO . ARE YOU ABUSED, NEGLECTED, OR IN AN UNSAFE ENVIRONMENT? NO . ENDOCRINOLOGY: ARE YOU DIABETIC? NO . OTHER: DO YOU NEED ANY PRESCRIPTIONS? NO . IF YES, PLEASE LIST: ____ . ANY NEW PROBLEMS WITH YOUR MEDICATIONS? NO . WHEN DID YOU LAST EAT? ____[id number] 1150 PM . WHEN DID YOU LAST DRINK? ____53-63-08 1150 PM . WHAT DID YOU LAST DRINK? ____ANITHA REA . NAME OF PERSON DRIVING YOU HOME? ____BRENDA WHEELER . DO YOU HAVE ANY OTHER QUESTIONS OR CONCERNS NO . VITAL SIGNS WT 153.2 LBS, HT 63 IN, BMI 27.14 INDEX, BP 134/70 MM HG, HR 73 /MIN, RR 16 /MIN, TEMP 96.8 F, OXYGEN SAT % 99%, NA INITIALS SC 10:32. EXAMINATION GENERAL EXAMINATION: PATIENT IS ALERT O X 3 AND COOPERATIVE. BOTH LEGS ARE WEAK AT EXTENSION AND FLEXION. STRAIGHT LEG RAISE OF BOTH LEGS IS POSITIVE AT 45 DEGREES. MRI OF THE LUMBAR SPINE DONE ON 05/01/2017 SHOWS A FUSION AT L4-L5 AND L5-S1. ASSESSMENTS LUMBAR POST-LAMINECTOMY SYNDROME - M96.1 (PRIMARY) INTERVERTEBRAL DISC DISORDERS WITH RADICULOPATHY, LUMBAR REGION - M51.16 TREATMENT LUMBAR POST-LAMINECTOMY SYNDROME LAB: BLOOD UREA NITROGEN (BUN) (ORDERED FOR 06/15/2019) LAB: CREATININE (ORDERED FOR 06/15/2019) [facility] MRI LS SPINE W/O AND WITH [id number] CLINICAL NOTES: WE DISCUSSED SEVERAL ISSUES WITH MS[employer]IN MANAG[employer] CASE. DUE TO THE PATIENT NOT HAVING ANY MRI STUDIES DONE IN THE LAST TWO YEARS AND THE PATIENT IS NOW EXPERIENCING NEW SYMPTOMS, I WOULD LIKE TO REQUEST FOR AN UPDATED LUMBAR SPINE MRI WITH AND WITHOUT CONTRAST TO CONSIDER INTERVENTIONS. I WILL ALSO ORDER FOR A BUN AND CREATININE TEST TO BE DONE FOR THE MRI CONTRAST. DEPENDING ON THE MRI RESULTS, I MAY CONSIDER REPEATING AN EPIDURAL SINCE THE PATIENT HAS HAD THE PROCEDURE DONE IN THE PAST WITH GOOD PAIN RELIEF RESULTS. THE PATIENT WILL FOLLOW UP WITH THE NURSE PRACTITIONER IN SEVERAL WEEKS TO GO OVER THE MRI RESULTS AND DISCUSS OPTIONS TO PROCEED WITH. INSTRUCTIONS WERE GIVEN, QUESTIONS WERE ANSWERED, PATIENT REPORTS UNDERSTANDING AND AGREES WITH THE PLAN. I, DANIEL BERMEO, DOCUMENTED THE ABOVE INFORMATION ACTING A SCRIBE FOR DR. STRICKLAND. I HAVE REVIEWED THE ABOVE DOCUMENT, WRITTEN BY DANIEL TERESA AND I VERIFY THAT IT IS ACCURATE. . INTERVERTEBRAL DISC DISORDERS WITH RADICULOPATHY, LUMBAR REGION LAB: BLOOD UREA NITROGEN (BUN) (ORDERED FOR 06/15/2019) LAB: CREATININE (ORDERED FOR 06/15/2019) [facility] MRI LS SPINE W/O AND WITH [id number] PROCEDURE CODES G8427 CURRENT MEDS W/DOSAGES DOCUMENTED G8730 PAIN ASSESS POS TOOL F/U PLAN DOC [id number] ESTABILISHED PATIENT [facility] CHARGE DISPOSITION & COMMUNICATION FOLLOW UP REASON: ORDERING LS MRI W AND W/O CON, BUN & CREATINE, F/UP WIHT NICKER AND BREAKER ELECTRONICALLY SIGNED BY JOEL STRICKLAND MD, MD ON 06/22/2019 AT 03:16 PM EST DISCLAIMER : THIS IS A VISIT SUMMARY EXTRACTED FROM THE [employer] CHART. IT IS NOT A COPY OF THE [employer] PROGRESS NOTE. MTDD
== END ==
LOC: M PAIN 10:30
PROVIDERS: ATTEND Anesthesiology
DX: M96.1 Postlaminectomy syndrome, not elsewhere classified (principal); M51.16 Intervertebral disc disorders with radiculopathy, lumbar region; G43.709 Chronic migraine without aura, not intractable, without status migrainosus; G47.30 Sleep apnea, unspecified; E03.9 Hypothyroidism, unspecified; F41.9 Anxiety disorder, unspecified; M54.2 Cervicalgia; Z79.899 Other long term (current) drug therapy; Z98.1 Arthrodesis status; Z88.1 Allergy status to other antibiotic agents

== ENCOUNTER → 2019-06-29 | Outpatient (CLI) | payer MEDICARE, OTHER ==
--- NOTE | 2019-07-16 04:46 | ECWPNPC ---
PATIENT NAME: LOYD BURNETT : 1955 GENDER: FEMALE VISIT DATE: 06/29/2019 DISCHARGE DATE: 06/29/19 1247 VISIT LOCKED DATE TIME: PHYSICIAN: GANESH MEDEL RESOURCE: GANESH MEDEL REASON FOR APPOINTMENT 1. POST PROC, REVIEW MRI HISTORY OF PRESENT ILLNESS HISTORY OF PRESENT ILLNESS: HERE FOR REVIEW OF MRI L/S SPINE THAT DR STRICKLAND ORDERED AT LAST VISIT DUE TO NEW ONSET OF RIGHT THIGH PAIN.HER PROCEDURE WAS CANCELLED BASED ON THE NEW AREA OF PAIN UNTIL MRI L/S SPINE COULD BE EVALUATED.SHE IS VERY EMOTIONAL TODAY AND REPORTING THAT THIS IS RELATED TO UNCONTROLLED PAIN.PAIN IS LOCATED IN LEFT LOW BACK AND BUTTOCKS AND RIGHT THIGH.RATING PAIN VAS 10/10.DESCRIBES PAIN SHARP AND ACHING AND CONTINUOUS WITH NIGHTTIME AWAKENINGS DUE TO PAIN.REVIEWED MRI AND DISCUSSED TREATMENT OPTIONS. PAIN THE PATIENT DESCRIBES THE PAIN... FALL RISK SCREENING: SCREENING :NO FALLS REPORTED IN THE LAST YEAR CURRENT MEDICATIONS TAKING FAMOTIDINE 20 MG TABLET 1 TABLET AT BEDTIME ORALLY TWICE A DAY TAKING LEVOTHYROXINE SODIUM 75 MCG TABLET 1 TABLET ON AN EMPTY STOMACH IN THE MORNING ORALLY ONCE A DAY TAKING FISH OIL 1200 MG CAPSULE DELAYED RELEASE 2 CAPSULE ORALLY TWICE A DAY TAKING [id number] 50-300-40 MG CAPSULE 1 CAPSULE NEEDED ORALLY EVERY 4 HRS NEEDED TAKING FUROSEMIDE 20 MG TABLET 1 TABLET ORALLY ONCE A DAY, NOTES: NEEDED TAKING POTASSIUM CHLORIDE ANNETTE ER 10 MEQ TABLET EXTENDED RELEASE 1 TABLET WITH FOOD ORALLY ONCE A DAY, NOTES: NEEDED TAKING MULTIVITAMIN ADULT - TABLET ORALLY TWICE DAILY TAKING GABAPENTIN 300 MG TABLET 1 TABLET ORALLY FOUR TIMES A DAY TAKING FLUTICASONE PROPIONATE 50 MCG/ACT SUSPENSION 1 SPRAY IN EACH NOSTRIL NASALLY ONCE A DAY TAKING BUPROPION HCL 75 MG TABLET 1 TABLET ORALLY BID TAKING VOLTAREN 1 % GEL TRANSDERMAL TAKING RELPAX 40 MG TABLET 1 TABLET NEEDED ONE TIME ORALLY ONCE A DAY TAKING METOCLOPRAMIDE HCL 5 MG TABLET ORALLY NEEDED TAKING CALCIUM PLUS VITAMIN D 600-100 MG-UNIT CAPSULE 1 CAPSULE WITH A MEAL ORALLY ONCE A DAY TAKING ZOLPIDEM TARTRATE 10 MG TABLET 1 TABLET AT BEDTIME NEEDED ORALLY ONCE A DAY TAKING MAGNESIUM 500 MG TABLET 1 TABLET WITH A MEAL ORALLY BID TAKING PEPCID 20 MG TABLET 1 TABLET ORALLY BID TAKING TIZANIDINE HCL 4 MG TABLET 1 TABLET NEEDED ORALLY THREE TIMES A DAY 30 TAB SHOULD LAST 30 DAYS TAKING CELEBREX 100 MG CAPSULE 1 CAPSULE WITH FOOD ORALLY BID TAKING TOPIRAMATE 100 MG TABLET 1 TABLET ORALLY TWICE A DAY TAKING ZONISAMIDE 100 MG CAPSULE 1 CAPSULE ORALLY BID DISCONTINUED BACLOFEN 10 MG TABLET 1 TABLET WITH FOOD OR MILK ORALLY TWO TIMES A DAY DISCONTINUED LOTEMAX 0.5 % SUSPENSION 1 DROP INTO AFFECTED EYE OPHTHALMIC FOUR TIMES A DAY MEDICATION LIST REVIEWED AND RECONCILED WITH THE PATIENT PAST MEDICAL HISTORY CHRONIC MIGRAINE OCCIPITAL NEURALGIA, CERVICALGIA LOW BACK PAIN ARTHRITIS SLEEP APNEA (HAS CPAP) HYPOTHYROIDISM ANXIETY ALLERGIES CIPRO: DISORIENTATION - SIDE EFFECTS SURGICAL HISTORY 1984 1990 GASTRIC BYPASS 2001 L4-L5 L5-S1 FUSION 2005 C5-6 CERVICAL FUSION 2006 LAMINECTOMY 2013 FAMILY HISTORY FATHER: 48 YRS, DIAGNOSED WITH DIABETES, UNSPECIFIED CEREBRAL ARTERY OCCLUSION WITH CEREBRAL INFARCTION MOTHER: OTHER MALIGNANT NEOPLASM OF UNSPECIFIED SITE, DIABETES SIBLINGS: DIABETES 1 BROTHER(S) . 2 SON(S) , 1 DAUGHTER(S) . BROTHER HAS TYPE II DIABETES, HTNDAUGHTER HAS OBESEITYSON HAS OBESITY. SOCIAL HISTORY GENERAL: TOBACCO USE ARE YOU A:CURRENT SMOKER SOCIALLY ARE YOU INTERESTED IN QUITTING?READY TO QUIT COUNSELED THE PATIENT ON TOBACCO USE, CESSATION [id number]/26/2019 HOW MANY CIGARETTES A DAY DO YOU SMOKE?5 OR LESS PATIENT COUNSELED ON THE DANGERS OF TOBACCO USE AND URGED TO QUIT:06/29/2019 SMOKING CESSATION INFORMATION GIVEN04/08/2019 OTHERS AT HOME: CHILD, CHILDREN. EDUCATION LEVEL OF EDUCATION:GRADUATE DIET: LOW CARB. LANGUAGE LANGUAGES SPOKEN:YORUBA RECREATIONAL DRUG USE DRUG USE?YES HOW OFTEN AND HOW MUCH? MARIJUANA OCCASIONALLY EXERCISE: NONE. LEARNING BARRIERS / SPECIAL NEEDS HEARING IMPAIRED?NO VISION IMPAIRED?YES GLASSES READINESS TO LEARN?YES LEARNING PREFERENCES?NO SPECIAL DEVICES?NO PAIN CLINIC PFS, CLERGY, PUBLIC HEALTH REFERRALS HAS THE PATIENT BEEN EDUCATED REGARDING HIS/HER PLAN OF CARE?YES HAS THE PATIENT BEEN EDUCATED REGARDING PAIN, THE RISK FOR PAIN, THE IMPORTANCE OF EFFECTIVE PAIN MANAGEMENT, AND THE PAIN ASSESSMENT PROCESS?YES LATEX QUESTIONNAIRE LATEX ALLERGY : HAVE YOU EVER DEVELOPED ANY TYPE OF REACTION AFTER HANDLING LATEX PRODUCTS SUCH RUBBER GLOVES, CONDOMS, DIAPHRAGMS, BALLOONS, SOCKS, OR UNDERWEAR?NO LATEX ALLERGY : HAVE YOU EVER DEVELOPED ANY TYPE OF REACTION DURING OR AFTER DENTAL APPOINTMENT, VAGINAL/RECTAL EXAMINATION, SURGICAL PROCEDURE, OR ANY OTHER EXPOSURE?NO LATEX RISK : HAVE YOU EVER HAD ANY DIFFICULTY BREATHING OR HIVES AFTER EATING OR HANDLING ANY FRUITS, OR VEGETABLES; SUCH KIWI, BANANAS, STONE FRUITS, OR CHESTNUTSNO LATEX RISK : DO YOU HAVE A PREVIOUS PERSONAL HISTORY OF MORE THAN NINE SURGERIES, SPINA BIFIDA, OR REPEATED CATHERIZATIONS? YES - PLEASE INDICATE : > 9 SURGERIES LATEX RISK : ARE YOU FREQUENTLY EXPOSED TO LATEX PRODUCTS IN YOUR OCCUPATION?NO DATE ASKED : 06/29/2019 CAFFEINE CAFFEINE USE?YES HOW OFTEN AND HOW MUCH? FEW CUPS DAILY ADVANCE DIRECTIVE ADVANCE DIRECTIVE DISCUSSED WITH PATIENT:YES PT DECLINES HCP INFORMATION AND ASSISTANCE WITH FORM 04/21/19 06/29/19 PT. HAS HCP LYDIA COLE (DAUGHTER)([phone] GNOSTICIST [id number] NONE MARITAL STATUS: . ALCOHOL SCREENING DID YOU HAVE A DRINK CONTAINING ALCOHOL IN THE PAST YEAR?YES HOW OFTEN DID YOU HAVE SIX OR MORE DRINKS ON ONE OCCASION IN THE PAST YEAR?LESS THAN MONTHLY (1 POINT) HOW MANY DRINKS DID YOU HAVE ON A TYPICAL DAY WHEN YOU WERE DRINKING IN THE PAST YEAR?1 OR 2 (0 POINTS) HOW OFTEN DID YOU HAVE A DRINK CONTAINING ALCOHOL IN THE PAST YEAR?TWO TO FOUR TIMES A MONTH (2 POINTS) POINTS3 INTERPRETATIONPOSITIVE OCCUPATION: RETIRED. REVIEWED WITH PT 03/18/19 0212 BVREVIEWED WITH PT 04/21/19 1410 BV. HOSPITALIZATION/MAJOR DIAGNOSTIC PROCEDURE SURGERY RELATED REVIEW OF SYSTEMS REVIEWED BY: PROVIDER: GANESH INMAN . CONSTITUTIONAL: ANY CHANGE IN YOUR MEDICAL CONDITION? NO . CHILLS NO . FEVER NO . INFECTION: DO YOU HAVE NEW INFECTIONS? NO . DO YOU HAVE HISTORY OF MRSA? NO . MUSCULOSKELETAL: ANY NEW PATTERNS OF PAIN OR NUMBNESS? NO . GASTROENTEROLOGY: ANY NEW CHANGE IN BOWEL CONTROL? NO . GENITOURINARY: ANY NEW CHANGE IN BLADDER CONTROL? NO . IS THERE A CHANCE YOU COULD BE ? NO . HEMATOLOGY/LYMPH: DO YOU TAKE ANY BLOOD THINNERS? (FOR EXAMPLE- COUMADIN, PLAVIX, AGGRENOX, PLATEL, PRADAXA, OR XARELTO) NO . WHEN WAS YOUR LAST DOSE? DATE: TIME: . NEUROLOGY: HAVE YOU FALLEN IN THE PAST 12 MONTHS? YES . ANY NEW EXTREMITY NUMBNESS OR WEAKNESS? NO . CARDIOLOGY: DO YOU HAVE A PACEMAKER OR DEFIBRILLATOR? NO . RESPIRATORY: HAVE YOU BEEN SICK IN THE PAST WEEK? NO . FEVER NO . FLU LIKE SYMPTOMS? NO . COUGH NO . INTEGUMENTARY: DO YOU HAVE ANY RASHES OR OPEN SORES? NO . ALLERGIC/IMMUNO: ARE YOU ALLERGIC TO IV DYE? NO . ANY NEW ALLERGIES? NO . PSYCHIATRIC: DO YOU HAVE THOUGHTS OF HURTING YOURSELF OR SOMEONE ELSE? NO . ARE YOU ABUSED, NEGLECTED, OR IN AN UNSAFE ENVIRONMENT? NO . ENDOCRINOLOGY: ARE YOU DIABETIC? NO . OTHER: DO YOU NEED ANY PRESCRIPTIONS? NO . IF YES, PLEASE LIST: ____ . ANY NEW PROBLEMS WITH YOUR MEDICATIONS? NO . WHEN DID YOU LAST EAT? ____ . WHEN DID YOU LAST DRINK? ____ . WHAT DID YOU LAST DRINK? ____ . NAME OF PERSON DRIVING YOU HOME? ____ . DO YOU HAVE ANY OTHER QUESTIONS OR CONCERNS NO . VITAL SIGNS WT 153.6 LBS, HT 63 IN, BMI 27.21 INDEX, BP 133/73 MM HG, HR 87 /MIN, RR 16 /MIN, TEMP 96.6 F, OXYGEN SAT % 99%, SAFE IN ENV? (Y/N) YES, NA INITIALS AW 1142, REVIEWED BY: HUGO. EXAMINATION GENERAL EXAMINATION: GENERAL AWAKE,ALERT ,PLEAASANT . PSYCH AFFECT NORMAL . LUNGS: LUNG PINEDO ARE CLEAR TO AUSCULTATION BILATERALLY. GOOD MOVEMENT OF AIR . HEART: S1, S2 IN A REGULAR RATE AND RHYTHM. NO SIGNIFICANT MURMURS, RUBS OR GALLOPS NOTED . MUSCULOSKELETAL: WEAK OVER RIGHT LEG. FOR BILAT. SIJ PALPATION: + FOR PAIN OVER L/S SPINE. + FOR PAIN OVER L/S PARASPINALS. NEUROLOGIC EXAM: NORMAL SENSATION LIGHT TOUCH BILAT. LOWER EXTREMITIES. DIAGNOSTIC TESTS REVIEWEDMRI L/S SPINE-06/21/19. ASSESSMENTS OTHER SPONDYLOSIS, LUMBOSACRAL REGION - M47.897 (PRIMARY) TREATMENT OTHER SPONDYLOSIS, LUMBOSACRAL REGION INCREASE TIZANIDINE HCL TABLET, 4 MG, 1/2 TO 1 TAB, ORALLY, 1 AT HS MAY TAKE 1/2 TAB EARLY AM IF NEEDED INFREQUENTLY, 30 DAYS, 45, REFILLS 1 NOTES: CAUDAL EPIDURALRECOMMEND ATTENDING WALK IN [facility] M-F 8AM-11 AM. [facility] REASON:POST LAMINECTOMY SYNDROME.NEW ONSET RIGHT LEG RADICULOPATHY PROCEDURE CODES FA211 ESTABILISHED PATIENT [facility] FACILITY CHARGE DISPOSITION & COMMUNICATION FOLLOW UP POST (REASON: CAUDAL EPIDURAL) ELECTRONICALLY SIGNED BY STORM BOJORQUEZ ON 07/15/2019 AT 09:05 AM EST DISCLAIMER : THIS IS A VISIT SUMMARY EXTRACTED FROM THE [employer] CHART. IT IS NOT A COPY OF THE [employer] PROGRESS NOTE. JOHNATHAN
== END ==
LOC: M PAIN 11:30
PROVIDERS: ATTEND Nurse Practitioner Family
DX: M47.897 Other spondylosis, lumbosacral region (principal); G43.909 Migraine, unspecified, not intractable, without status migrainosus; G47.30 Sleep apnea, unspecified; E03.9 Hypothyroidism, unspecified; Z86.59 Personal history of other mental and behavioral disorders; F17.210 Nicotine dependence, cigarettes, uncomplicated; Z88.1 Allergy status to other antibiotic agents; Z79.899 Other long term (current) drug therapy

== ENCOUNTER → 2021-01-23 | Outpatient (CLI) | payer MEDICARE, OTHER ==
--- NOTE | 2021-01-25 01:04 | ECWPNPC ---
PATIENT NAME: LOYD BURNETT : 1955 GENDER: FEMALE VISIT DATE: 01/23/2021 DISCHARGE DATE: 01/23/21 1500 VISIT LOCKED DATE TIME: PHYSICIAN: GANESH MEDEL RESOURCE: GANESH MEDEL REASON FOR APPOINTMENT 1. BOTOX FOR MIGRAINES HISTORY OF PRESENT ILLNESS DEPRESSION SCREENING: PHQ-2 (2015 EDITION) LITTLE INTEREST OR PLEASURE IN DOING THINGS?SEVERAL DAYS FEELING DOWN, DEPRESSED, OR HOPELESS?NOT AT ALL TOTAL SCORE1 GENERAL: HERE PER REFERRAL OF DR. FERRO, [facility], FOR CHRONIC MIGRAINE HEADACHE AND TO CONTINUE BOTOX THERAPY. PATIENT HAS BEEN RECIEVING BOTOX THERAPY WITH [facility] OVER THE PAST 5 YEARS. PRIOR TO BOTOX THERAPY SHE WAS EXPERIENCING 20+ MIGRAINE HEADACHE DAYS A MONTH EACH LASTING GREATER THAN 10 HOURS. SINCE BOTOX THERAPY AND HER CURRENT MEDICATION REGIMEN FOR PREVENTATIVE AND ABORTIVE THERAPY FOR CHRONIC MIGRAINE ,SHE IS ABLE TO HAVE LESS THAN 3 HEADACHE DAYS A MONTH. SHE IS DUE FOR HER BOTOX PREVENTATIVE FOR CHRONIC MIGRAINE THIS MONTH.SHE WOULD LIKE TO ESTABLISH CARE HERE FOR BOTOX THERAPY EVERY 3 MONTHS.DENIES RECENT FEVER,ILLNESS OR SUDDEN WEIGHT LOSS. -. FALL RISK SCREENING: SCREENING : NO FALLS REPORTED IN THE LAST YEAR. PAIN SCREENING: PATIENT HAS A COMPLAINT OF ACUTE OR CHRONIC PAIN :YES LOCATION OF PAIN:HEAD, NECK, BOTH SHOULDERS INTENSITY OF PAIN (SCALE OF 1 TO 10):3 WHAT DOES YOUR PAIN FEEL LIKE:ACHING, BURNING, CONTINOUS, STABBING, TENDER, THROBBING, SORE, SHOOTING DURATION:CONTINOUS, CONSTANT, ALL DAY PAIN IS INCREASED BY:OTHERS WHEATHER, LIGHT AND STRESS PAIN IS DECREASED BY:OTHERS RESTING,DARKNESS NURSING NOTE: -. PAIN CENTER INTAKE QUESTIONS: DO YOU HAVE A HISTORY OF MRSA? :NO DO YOU TAKE A BLOOD THINNERS? :NO DO YOU HAVE ANY BLEEDING DISORDERS? :NO ANY NEW NUMBNESS OR WEAKNESS IN YOUR LEGS OR ARMS? :NO ANY PACEMAKER,DEFIBRILLATOR, OR DORSAL COLUMN STIMULATOR? :NO DO YOU HAVE ANY RASHES OR OPEN SORES? :NO ARE YOU ALLERGIC TO IV DYE? :NO ARE YOU DIABETIC? :NO ANY NEW PROBLEMS WITH YOUR MEDICATIONS? :NO HAVE YOU RECEIVED A VACCINE IN THE PAST 30 DAYS? :NO DO YOU PLAN TO RECEIVE A VACCINE IN THE NEXT 21 DAYS? :NO DO YOU NEED ANY PRESCRIPTION? :NO DO YOU TAKE ANY IMMUNOSUPPRESSIVE MEDICATIONS? :NO DO YOU HAVE ANY KIDNEY OR LIVER DISEASE? :NO IS THERE A CHANCE YOU COULD BE ? :NO ARE YOU BREAST FEEDING? :NO CURRENT MEDICATIONS TAKING LEVOTHYROXINE SODIUM 75 MCG TABLET 1 TABLET ON AN EMPTY STOMACH IN THE MORNING ORALLY ONCE A DAY TAKING FISH OIL 1200 MG CAPSULE DELAYED RELEASE 2 CAPSULE ORALLY TWICE A DAY TAKING [id number] 50-300-40 MG CAPSULE 1 CAPSULE NEEDED ORALLY EVERY 4 HRS NEEDED TAKING FUROSEMIDE 20 MG TABLET 1 TABLET ORALLY ONCE A DAY, NOTES: NEEDED TAKING POTASSIUM CHLORIDE ANNETTE ER 10 MEQ TABLET EXTENDED RELEASE 1 TABLET WITH FOOD ORALLY ONCE A DAY, NOTES: NEEDED TAKING MULTIVITAMIN ADULT - TABLET ORALLY TWICE DAILY TAKING GABAPENTIN 300 MG TABLET 1 TABLET ORALLY FOUR TIMES A DAY TAKING FLUTICASONE PROPIONATE 50 MCG/ACT SUSPENSION 1 SPRAY IN EACH NOSTRIL NASALLY ONCE A DAY TAKING BUPROPION HCL 75 MG TABLET 1 TABLET ORALLY BID TAKING VOLTAREN 1 % GEL TRANSDERMAL TAKING RELPAX 40 MG TABLET 1 TABLET NEEDED ONE TIME ORALLY ONCE A DAY TAKING CALCIUM PLUS VITAMIN D 600-100 MG-UNIT CAPSULE 1 CAPSULE WITH A MEAL ORALLY ONCE A DAY TAKING MAGNESIUM 500 MG TABLET 1 TABLET WITH A MEAL ORALLY BID TAKING PEPCID 20 MG TABLET 1 TABLET ORALLY BID TAKING CELEBREX 100 MG CAPSULE 1 CAPSULE WITH FOOD ORALLY BID TAKING TOPIRAMATE 100 MG TABLET 1 TABLET ORALLY TWICE A DAY TAKING TIZANIDINE HCL 4 MG TABLET 1/2 TO 1 TAB ORALLY 1 AT HS MAY TAKE 1/2 TAB EARLY AM IF NEEDED INFREQUENTLY TAKING TRAZODONE HCL 100 MG TABLET 1 TABLET AT BEDTIME ORALLY ONCE A DAY NOT-TAKING FAMOTIDINE 20 MG TABLET 1 TABLET AT BEDTIME ORALLY TWICE A DAY NOT-TAKING METOCLOPRAMIDE HCL 5 MG TABLET ORALLY NEEDED NOT-TAKING ZOLPIDEM TARTRATE 10 MG TABLET 1 TABLET AT BEDTIME NEEDED ORALLY ONCE A DAY NOT-TAKING ZONISAMIDE 100 MG CAPSULE 1 CAPSULE ORALLY BID NOT-TAKING FIORICET 50-300-40 MG CAPSULE 1 CAPSULE NEEDED ORALLY EVERY 4 HRS MEDICATION LIST REVIEWED AND RECONCILED WITH THE PATIENT PAST MEDICAL HISTORY CHRONIC MIGRAINE OCCIPITAL NEURALGIA, CERVICALGIA LOW BACK PAIN ARTHRITIS SLEEP APNEA (HAS CPAP) HYPOTHYROIDISM ANXIETY NECK PAIN ALLERGIES CIPRO: DISORIENTATION - SIDE EFFECTS REGLAN: TREMOR - SIDE EFFECTS - ONSET DATE 02/24/2020 SURGICAL HISTORY 1984 1990 GASTRIC BYPASS 2001 L4-L5 L5-S1 FUSION 2005 C5-6 CERVICAL FUSION 2006 LAMINECTOMY 2013 L3-L4 FUSION 2019 FAMILY HISTORY FATHER: 48 YRS, DIAGNOSED WITH DIABETES, UNSPECIFIED CEREBRAL ARTERY OCCLUSION WITH CEREBRAL INFARCTION MOTHER: ALIVE 89 YRS, DIABETES, OTHER MALIGNANT NEOPLASM OF UNSPECIFIED SITE SIBLINGS: ALIVE, DIABETES SON(S): ALIVE DAUGHTER(S): ALIVE 1 BROTHER(S) - HEALTHY. 2 SON(S) , 1 DAUGHTER(S) - HEALTHY. BROTHER HAS TYPE II DIABETES, HTNDAUGHTER HAS OBESEITYSON HAS OBESITY. SOCIAL HISTORY GENERAL: TOBACCO USE ARE YOU A:CURRENT SMOKER SOCIALLY ARE YOU INTERESTED IN QUITTING?READY TO QUIT COUNSELED THE PATIENT ON TOBACCO USE, CESSATION [id number]/22/2021 HOW MANY CIGARETTES A DAY DO YOU SMOKE?5 OR LESS HOW SOON AFTER YOU WAKE UP DO YOU SMOKE YOUR FIRST CIGARETTE?AFTER 60 MIN HOW OFTEN DO YOU SMOKE CIGARETTES?SOME DAYS, BUT NOT EVERY DAY PATIENT COUNSELED ON THE DANGERS OF TOBACCO USE AND URGED TO QUIT:01/23/2021 SMOKING CESSATION INFORMATION GIVEN04/08/2019 LATEX QUESTIONNAIRE LATEX ALLERGY : HAVE YOU EVER DEVELOPED ANY TYPE OF REACTION AFTER HANDLING LATEX PRODUCTS SUCH RUBBER GLOVES, CONDOMS, DIAPHRAGMS, BALLOONS, SOCKS, OR UNDERWEAR?NO LATEX ALLERGY : HAVE YOU EVER DEVELOPED ANY TYPE OF REACTION DURING OR AFTER DENTAL APPOINTMENT, VAGINAL/RECTAL EXAMINATION, SURGICAL PROCEDURE, OR ANY OTHER EXPOSURE?NO LATEX RISK : HAVE YOU EVER HAD ANY DIFFICULTY BREATHING OR HIVES AFTER EATING OR HANDLING ANY FRUITS, OR VEGETABLES; SUCH KIWI, BANANAS, STONE FRUITS, OR CHESTNUTSNO LATEX RISK : DO YOU HAVE A PREVIOUS PERSONAL HISTORY OF MORE THAN NINE SURGERIES, SPINA BIFIDA, OR REPEATED CATHERIZATIONS? YES - PLEASE INDICATE : > 9 SURGERIES LATEX RISK : ARE YOU FREQUENTLY EXPOSED TO LATEX PRODUCTS IN YOUR OCCUPATION?NO DATE ASKED : 01/23/2021 ALCOHOL USE: YES. ALCOHOL SCREENING DID YOU HAVE A DRINK CONTAINING ALCOHOL IN THE PAST YEAR?YES HOW OFTEN DID YOU HAVE SIX OR MORE DRINKS ON ONE OCCASION IN THE PAST YEAR?LESS THAN MONTHLY (1 POINT) HOW MANY DRINKS DID YOU HAVE ON A TYPICAL DAY WHEN YOU WERE DRINKING IN THE PAST YEAR?1 OR 2 (0 POINTS) HOW OFTEN DID YOU HAVE A DRINK CONTAINING ALCOHOL IN THE PAST YEAR?TWO TO FOUR TIMES A MONTH (2 POINTS) POINTS3 INTERPRETATIONPOSITIVE RECREATIONAL DRUG USE DRUG USE?YES HOW OFTEN AND HOW MUCH? MARIJUANA OCCASIONALLY CAFFEINE CAFFEINE USE?YES HOW OFTEN AND HOW MUCH? FEW CUPS DAILY MUSLIM [id number] NONE LANGUAGE LANGUAGES SPOKEN:MONTSERRATIAN EDUCATION LEVEL OF EDUCATION:GRADUATE LEARNING BARRIERS / SPECIAL NEEDS CHANGE FROM LAST VISIT?YES BARRIERS TO LEARNING?NO HEARING IMPAIRED?NO VISION IMPAIRED?YES GLASSES COGNITIVELY IMPAIRED?NO READINESS TO LEARN?YES LEARNING PREFERENCES?NO LEARNING CAPABILITIES PRESENT?YES EMOTIONAL BARRIERS?NO SPECIAL DEVICES?YES :OTHER CPAP ENGINEERING LECTURER NEEDED?NO OCCUPATION: RETIRED. DIET: LOW CARB. EXERCISE: NONE. MARITAL STATUS: . OTHERS AT HOME: CHILD, CHILDREN. - HAS THE PATIENT BEEN EDUCATED REGARDING HIS/HER PLAN OF CARE?YES HAS THE PATIENT BEEN EDUCATED REGARDING PAIN, THE RISK FOR PAIN, THE IMPORTANCE OF EFFECTIVE PAIN MANAGEMENT, AND THE PAIN ASSESSMENT PROCESS?YES ADVANCE DIRECTIVE ADVANCE DIRECTIVE DISCUSSED WITH PATIENT:YES PT DECLINES HCP INFORMATION AND ASSISTANCE WITH FORM 04/21/19 06/29/19 PT. HAS HCP LYDIA COLE (DAUGHTER)([phone] REVIEWED WITH PT 03/18/19 0903 BVREVIEWED WITH PT 04/21/19 6044 BV. HOSPITALIZATION/MAJOR DIAGNOSTIC PROCEDURE SURGERY RELATED CHILDBIRTH 3X REVIEW OF SYSTEMS CONSTITUTIONAL: ANY RECENT FEVER NO . CHILLS NO . WEIGHT CHANGE OF UNKNOWN REASONS NO . GASTROENTEROLOGY: NEW UNEXPLAINABLE CHANGES IN BOWEL CONTROL NO . CONSTIPATION NO . GENITOURINARY: ANY NEW CHANGE IN BLADDER CONTROL? NO . NEUROLOGY: NEW ONSET DIZZINESS OR NEUROLOGICAL CHANGES NOT MENTIONED NO . NEW NUMBNESS OR PAIN PATTERNS NOT MENTIONED AND PERTINENT TO TODAY'S VISIT NO . CARDIOLOGY: NEW CHEST PRESSURE NO . PATIENT DENIES NO . RESPIRATORY: UNEXPLAINABLE COUGH NO . NEW SHORTNESS OF BREATH NO . VITAL SIGNS WT 136.2 LBS, HT 63 IN, BMI 24.12 INDEX, BP 131/71 MM HG, HR 71 /MIN, RR 18 /MIN, TEMP 97.7 F, OXYGEN SAT % 97%, SAFE IN ENV? (Y/N) YES, NA INITIALS AW 1417T.KEN ARANGO. EXAMINATION GENERAL EXAMINATION: GENERALNO ACUTE DISTRESS, WELL NOURISHED AND HYDRATED. PSYCHAPPROPRIATE MOOD AND AFFECT . FACE:UNREMARKABLE. NECK:NO LYMPHADENOPATHY, SUPPLE. LUNGS:CLEAR TO AUSCULTATION BILATERALLY, NO WHEEZES, RHONCHI, RALES. HEART:NO MURMURS, REGULAR RATE AND RHYTHM. MUSCULOSKELETAL: MUSCLE STRENGTH TESTING 5/5 BILATERAL UPPER/LOWER EXTREMITIES. NEUROLOGIC EXAM: CN'S II-XII GROSSLY INTACT.NEGATIVE ROMBERG TEST DTRS 1-2+ IN ALL 4 EXTREMITIES. ASSESSMENTS CHRONIC MIGRAINE - G43.709 (PRIMARY) TREATMENT CHRONIC MIGRAINE NOTES: BOTOX INJECTIONS TO THE HEAD, NECK AND SHOULDER AREAS. REQUESTING AUTH FOR BOTOX INJECTIONS OF 155 UNITS INTO BILATERAL [facility]ACTICE RN, PROCERUS, FRONTALIS, TEMPORALIS, OCCIPITALIS, PARASPINAL AND TRAPEZIUS MUSCLES EVERY 3 MONTHS PRINTED AND REVIEWED PRE PROCEDURE INFORMATION, PATIENT VERBALIZED UNDERSTANDING. LIANE ARANGO. PROCEDURE CODES FA211 ESTABILISHED PATIENT [facility] FACILITY CHARGE DISPOSITION & COMMUNICATION FOLLOW UP POST (REASON: BOTOX INJECTIONS TO THE HEAD, NECK AND SHOULDER AREAS,) ELECTRONICALLY SIGNED BY STORM BOJORQUEZ ON 01/24/2021 AT 08:50 AM EDT DISCLAIMER : THIS IS A VISIT SUMMARY EXTRACTED FROM THE [employer] CHART. IT IS NOT A COPY OF THE [employer] PROGRESS NOTE. JOHNATHAN
== END ==
LOC: M PAIN 14:15
PROVIDERS: ATTEND Nurse Practitioner Family
DX: G43.709 Chronic migraine without aura, not intractable, without status migrainosus (principal); M54.81 Occipital neuralgia; G47.30 Sleep apnea, unspecified; E03.9 Hypothyroidism, unspecified; F41.9 Anxiety disorder, unspecified; M54.2 Cervicalgia; F17.210 Nicotine dependence, cigarettes, uncomplicated; Z79.899 Other long term (current) drug therapy; Z88.1 Allergy status to other antibiotic agents; Z88.8 Allergy status to other drugs, medicaments and biological substances

== ENCOUNTER → 2021-02-23 | Outpatient (CLI) | payer MEDICARE, OTHER | LOC: M LABSMTC 13:35 | PROVIDERS: ATTEND Anesthesiology | DX: Z20.822 Contact with and (suspected) exposure to COVID-19 (principal) ==

== ENCOUNTER → 2021-02-28 | Outpatient (CLI) | payer MEDICARE, OTHER ==
[~2021-02-28] MED LIST changes: +BOTOX THERAPEUTIC 100 UNIT VIAL (J0585 PER 1 UNIT) IM ONE
--- NOTE | 2021-03-02 01:58 | ECWPNPC ---
PATIENT NAME: LOYD BURNETT : 1955 GENDER: FEMALE VISIT DATE: 02/28/2021 DISCHARGE DATE: 02/28/21 1245 VISIT LOCKED DATE TIME: PHYSICIAN: JOEL STRICKLAND MD RESOURCE: JOEL STRICKLAND MD REASON FOR APPOINTMENT 1. BOTOX INJECTIONS TO THE HEAD, NECK AND SHOULDER AREAS, HISTORY OF PRESENT ILLNESS GENERAL: -. FALL RISK SCREENING: SCREENING : NO FALLS REPORTED IN THE LAST YEAR. PAIN SCREENING: PATIENT HAS A COMPLAINT OF ACUTE OR CHRONIC PAIN :YES LOCATION OF PAIN:HEAD, NECK, BOTH SHOULDERS INTENSITY OF PAIN (SCALE OF 1 TO 10):2 1-02/10 WHAT DOES YOUR PAIN FEEL LIKE:ACHING, OTHER "ELECTRICAL" DURATION:CONTINOUS, AWAKENS FROM SLEEP PAIN IS INCREASED BY:ACTIVITIES, OTHERS WEATHER, LIGHT AND STRESS PAIN IS DECREASED BY:USE OF PAIN MEDICATIONS, OTHERS RESTING,DARKNESS PLAN/GOALS/TREATMENT/INTERVENTION/FOLLOW UP:SEE PLAN NURSING NOTE: -. PAIN CENTER INTAKE QUESTIONS: DO YOU HAVE A HISTORY OF MRSA? :NO DO YOU TAKE A BLOOD THINNERS? :NO DO YOU HAVE ANY BLEEDING DISORDERS? :NO ANY NEW NUMBNESS OR WEAKNESS IN YOUR LEGS OR ARMS? :NO ANY PACEMAKER,DEFIBRILLATOR, OR DORSAL COLUMN STIMULATOR? :NO DO YOU HAVE ANY RASHES OR OPEN SORES? :NO ARE YOU ALLERGIC TO IV DYE? :NO ARE YOU DIABETIC? :NO ANY NEW PROBLEMS WITH YOUR MEDICATIONS? :NO HAVE YOU RECEIVED A VACCINE IN THE PAST 30 DAYS? :NO DO YOU PLAN TO RECEIVE A VACCINE IN THE NEXT 21 DAYS? :NO DO YOU TAKE ANY IMMUNOSUPPRESSIVE MEDICATIONS? :NO ANY HISTORY OF SEIZURES? :NO ANY HISTORY OF CARDIAC ISSUES OR EVENTS? :YES ANATOMICAL ABNORMALITIY, BICUSPID VALVE INSTEAD TRICUSPID VALVE DO YOU HAVE ANY KIDNEY OR LIVER DISEASE? :NO DO YOU HAVE SLEEP APNEA? :YES DO YOU WEAR A CPAP?NO ANY RECENT HEAD INJURY? :NO DO YOU HAVE ANY NEW INFECTIONS? :NO IS THERE A CHANCE YOU COULD BE ? :N/A ARE YOU BREAST FEEDING? :N/A WHEN DID YOU LAST EAT? : 02/27 2200 WHEN DID YOU LAST DRINK? : 02/28 0800 WHAT DID YOU LAST DRINK? : WATER NAME OF PERSON DRIVING YOU HOME? : VIRA NUNEZ (FRIEND) DO YOU HAVE ANY OTHER QUESTIONS OR CONCERNS? : NO CURRENT MEDICATIONS TAKING LEVOTHYROXINE SODIUM 75 MCG TABLET 1 TABLET ON AN EMPTY STOMACH IN THE MORNING ORALLY ONCE A DAY, NOTES: 02/29 800 TAKING FISH OIL 1200 MG CAPSULE DELAYED RELEASE 2 CAPSULE ORALLY TWICE A DAY TAKING [id number] 50-300-40 MG CAPSULE 1 CAPSULE NEEDED ORALLY EVERY 4 HRS NEEDED, NOTES: 2 WEEKS AGO TAKING FUROSEMIDE 20 MG TABLET 1 TABLET ORALLY ONCE A DAY, NOTES: NEEDED TAKING POTASSIUM CHLORIDE ANNETTE ER 10 MEQ TABLET EXTENDED RELEASE 1 TABLET WITH FOOD ORALLY ONCE A DAY, NOTES: NEEDED TAKING MULTIVITAMIN ADULT - TABLET ORALLY TWICE DAILY TAKING GABAPENTIN 300 MG TABLET 1 TABLET ORALLY FOUR TIMES A DAY, NOTES: 02/29 800 TAKING FLUTICASONE PROPIONATE 50 MCG/ACT SUSPENSION 1 SPRAY IN EACH NOSTRIL NASALLY ONCE A DAY TAKING BUPROPION HCL 75 MG TABLET 1 TABLET ORALLY BID TAKING VOLTAREN 1 % GEL TRANSDERMAL TAKING RELPAX 40 MG TABLET 1 TABLET NEEDED ONE TIME ORALLY ONCE A DAY, NOTES: 02/25 TAKING CALCIUM PLUS VITAMIN D 600-100 MG-UNIT CAPSULE 1 CAPSULE WITH A MEAL ORALLY ONCE A DAY TAKING MAGNESIUM 500 MG TABLET 1 TABLET WITH A MEAL ORALLY BID TAKING PEPCID 20 MG TABLET 1 TABLET ORALLY BID TAKING CELEBREX 100 MG CAPSULE 1 CAPSULE WITH FOOD ORALLY BID TAKING TOPIRAMATE 100 MG TABLET 1 TABLET ORALLY TWICE A DAY TAKING TIZANIDINE HCL 4 MG TABLET 1/2 TO 1 TAB ORALLY 1 AT HS MAY TAKE 1/2 TAB EARLY AM IF NEEDED INFREQUENTLY, NOTES: 02/27 2200 TAKING TRAZODONE HCL 100 MG TABLET 1 TABLET AT BEDTIME ORALLY ONCE A DAY, NOTES: 02/27 2200 TAKING BOTOX 100 UNIT SOLUTION RECONSTITUTED FOR IM INJECTION AT THE HEAD, NECK AND SHOULDER MUSCLES ICD G43.709 BOTOX ON 02/28/21 AT 10:40, NOTES: 10/05/20 NOT-TAKING FAMOTIDINE 20 MG TABLET 1 TABLET AT BEDTIME ORALLY TWICE A DAY NOT-TAKING METOCLOPRAMIDE HCL 5 MG TABLET ORALLY NEEDED NOT-TAKING ZOLPIDEM TARTRATE 10 MG TABLET 1 TABLET AT BEDTIME NEEDED ORALLY ONCE A DAY NOT-TAKING ZONISAMIDE 100 MG CAPSULE 1 CAPSULE ORALLY BID NOT-TAKING FIORICET 50-300-40 MG CAPSULE 1 CAPSULE NEEDED ORALLY EVERY 4 HRS MEDICATION LIST REVIEWED AND RECONCILED WITH THE PATIENT PAST MEDICAL HISTORY CHRONIC MIGRAINE OCCIPITAL NEURALGIA, CERVICALGIA LOW BACK PAIN ARTHRITIS SLEEP APNEA (HAS CPAP) HYPOTHYROIDISM ANXIETY NECK PAIN ALLERGIES CIPRO: DISORIENTATION - SIDE EFFECTS REGLAN: TREMOR - SIDE EFFECTS - ONSET DATE 02/24/2020 SOCIAL HISTORY GENERAL: TOBACCO USE ARE YOU A:CURRENT SMOKER SOCIALLY ARE YOU INTERESTED IN QUITTING?READY TO QUIT COUNSELED THE PATIENT ON TOBACCO USE, CESSATION [id number]/22/2021 HOW MANY CIGARETTES A DAY DO YOU SMOKE?5 OR LESS HOW SOON AFTER YOU WAKE UP DO YOU SMOKE YOUR FIRST CIGARETTE?AFTER 60 MIN HOW OFTEN DO YOU SMOKE CIGARETTES?SOME DAYS, BUT NOT EVERY DAY PATIENT COUNSELED ON THE DANGERS OF TOBACCO USE AND URGED TO QUIT:02/28/2021 SMOKING CESSATION INFORMATION GIVEN04/08/2019 VAPORNO E-CIGARETTENO LATEX QUESTIONNAIRE LATEX ALLERGY : HAVE YOU EVER DEVELOPED ANY TYPE OF REACTION AFTER HANDLING LATEX PRODUCTS SUCH RUBBER GLOVES, CONDOMS, DIAPHRAGMS, BALLOONS, SOCKS, OR UNDERWEAR?NO LATEX ALLERGY : HAVE YOU EVER DEVELOPED ANY TYPE OF REACTION DURING OR AFTER DENTAL APPOINTMENT, VAGINAL/RECTAL EXAMINATION, SURGICAL PROCEDURE, OR ANY OTHER EXPOSURE?NO LATEX RISK : HAVE YOU EVER HAD ANY DIFFICULTY BREATHING OR HIVES AFTER EATING OR HANDLING ANY FRUITS, OR VEGETABLES; SUCH KIWI, BANANAS, STONE FRUITS, OR CHESTNUTSNO LATEX RISK : DO YOU HAVE A PREVIOUS PERSONAL HISTORY OF MORE THAN NINE SURGERIES, SPINA BIFIDA, OR REPEATED CATHERIZATIONS? YES - PLEASE INDICATE : > 9 SURGERIES LATEX RISK : ARE YOU FREQUENTLY EXPOSED TO LATEX PRODUCTS IN YOUR OCCUPATION?NO DATE ASKED : 02/27/2021 ALCOHOL USE: YES. ALCOHOL SCREENING DID YOU HAVE A DRINK CONTAINING ALCOHOL IN THE PAST YEAR?YES HOW OFTEN DID YOU HAVE SIX OR MORE DRINKS ON ONE OCCASION IN THE PAST YEAR?LESS THAN MONTHLY (1 POINT) HOW MANY DRINKS DID YOU HAVE ON A TYPICAL DAY WHEN YOU WERE DRINKING IN THE PAST YEAR?1 OR 2 (0 POINTS) HOW OFTEN DID YOU HAVE A DRINK CONTAINING ALCOHOL IN THE PAST YEAR?TWO TO FOUR TIMES A MONTH (2 POINTS) POINTS3 INTERPRETATIONPOSITIVE RECREATIONAL DRUG USE DRUG USE?YES HOW OFTEN AND HOW MUCH? MARIJUA[place] OCCASIONALLY CAFFEINE CAFFEINE USE?YES HOW OFTEN AND HOW MUCH? 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 DIET: LOW CARB. EXERCISE: NONE. MARITAL STATUS: . OTHERS AT HOME: CHILD, CHILDREN. - HAS THE PATIENT BEEN EDUCATED REGARDING HIS/HER PLAN OF CARE?YES HAS THE PATIENT BEEN EDUCATED REGARDING PAIN, THE RISK FOR PAIN, THE IMPORTANCE OF EFFECTIVE PAIN MANAGEMENT, AND THE PAIN ASSESSMENT PROCESS?YES ADVANCE DIRECTIVE ADVANCE DIRECTIVE DISCUSSED WITH PATIENT:YES PT DECLINES HCP INFORMATION AND ASSISTANCE WITH FORM 04/21/19 06/29/19 PT. HAS HCP LYDIA COLE (DAUGHTER)([phone] VITAL SIGNS WT 136.0 LBS, HT 63 IN, BMI 24.09 INDEX, BP 154/70 MM HG, HR 68 /MIN, RR 18 /MIN, TEMP 98.4 F, OXYGEN SAT % 99%, SAFE IN ENV? (Y/N) Y, NA INITIALS AW 1059, REVIEWED BY: Tim FULTON RN. EXAMINATION GENERAL: THE PATIENT IS ALERT, ORIENTED TIMES THREE AND COOPERATIVE. LUNGS ARE CLEAR TO AUSCULTATION. HEART SHOWS REGULAR RHYTHM, NO MURMURS AND NO GALLOPS. ASSESSMENTS CHRONIC MIGRAINE - G43.709 (PRIMARY) TREATMENT CHRONIC MIGRAINE COMPLETION OF PROCEDURAL VISIT WHEN MEETS CRITERIAMALIKAMARIBETH Davenport 02/28/2021 12:44:37 PM > CRITERIA MET OTHERS NOTES: 02/27/21 PAT [id number]. Angelina GALICIA, RECREATION LEADER. PROCEDURES PAIN NURSING RECORD PROCEDURE IN ROOM 1040, PHYSICIAN IN ROOM 1220, START 1223, ECG N/A, PATIENT SHIELDED N/A, SAFETY STRAP NO, PREP ALCOHOL DR. STRICKLAND, DRESSING N/A LOC: LIZETH FULTON 02/28/2021 11:28:01 AM > 1. ALERT, ORIENTED 1. ALERT, ORIENTED RESP: LIZETH FULTON 02/28/2021 11:28:04 AM > 1. REGULAR, NO DYSPNEA 1. REGULAR, NO DYSPNEA COLOR: LIZETH FULTON 02/28/2021 11:28:08 AM > 1. PINK SKIN: LIZETH FULTON 02/28/2021 11:28:11 AM > 1. WARM, DRY POSITION: LIZETH FULTON 02/28/2021 11:28:16 AM > 5. SITTING 2. SUPINE SUPINE 1ST THEN TO SITTING POSITION VITALS: POST PROCEDURE 170/88 88 98% ON RA 18 RESPIRATION MARIBETH WISE 02/28/2021 12:43:56 PM > COMPLETION OF PROCEDURE APPOINTMENT: POST PAIN 0, DRESSING SITE NO DRESSING, IV N/A, GAIT STEADY, TEACHING COMPLETED, PATIENT ACKNOWLEDGES UNDERSTANDING YES, PROCEDURE APPOINTMENT COMPLETED AT 1243 PN BOTOX INJECTIONS FIRST INJECTION PRE PROCEDURE DIAGNOSIS CHRONIC MIGRAINE HEADACHES POST PROCEDURE DIAGNOSIS CHRONIC MIGRAINE HEADACHES PROCEDURE BOTOX INJECTION AT THE HEAD, NECK AND SHOULDERS SURGEON DR. JOEL STRICKLAND WOMENS VOLLEYBALL COACH NONE ANESTHESIA NONE PRE PROCEDURE NOTE THE PATIENT HAS HISTORY OF CHRONIC MIGRAINE HEADACHES. I EVALUATED THE PATIENT AND REVIEWED THE CHART. I WENT OVER THE RISKS, ALTERNATIVES, AND BENEFITS ASSOCIATED WITH THIS PROCEDURE. THE PATIENT WOULD LIKE TO PROCEED AND GAVE CONSENT TO PERFORM THE PROCEDURE. THE PATIENT DENIES UNEXPLAINABLE WEIGHT LOSS, FEVER, CHILLS, OR NEW CHANGES IN URINARY OR BOWEL CONTROL. SHE HAS BEEN DOING BOTOX INJECTIONS WITH DR. FERRO. THE LAST APPOINTMENT WAS 3-4 MONTHS AGO. BEFORE DOING BOTOX, SHE WAS HAVING HEADACHES EVERY DAY OF THE MONTH. THERE WAS AN INCIDENT OF NECK WEAKNESS AFTER BOTOX. I DISCUSSED THIS WITH HER AND WE AGREED TO USE 2.5 UNITS OF BOTOX AT THE OCCIPTIAL AREA. THE PATIENT HAS USED THE MEDICATIONS LISTED IN THE CHART TO TREAT THE HEADACHES FOR MANY MONTHS BUT THE HEADACHES PERSIST DESCRIBED ABOVE. THE PATIENT IS COVID-19 NEGATIVE DESCRIPTION OF PROCEDURE THE PATIENT WAS BROUGHT TO THE PROCEDURE ROOM AND PLACED IN THE SUPINE POSITION. A TIMEOUT WAS PERFORMED WHERE THE CONSENTED SITE WAS VERIFIED WITH EVERYONE IN THE ROOM FOR THE PROCEDURE I USED A SOLUTION OF 5 UNITS OF BOTOX PER EACH 0.1 ML OF THE SOLUTION. I USED A 30-GAUGE NEEDLE TO INJECT THE SOLUTION AT THE SELECTED LOCATIONS. I INJECTED FIRST THE RIGHT AND LEFT GENERAL MAINTENANCE TECHNICIAN MUSCLES. THE LANDMARK FOR BOTH INJECTIONS WAS APPROXIMATELY 1 CM ABOVE THE SUPERIOR MEDIAL EDGE OF THE EYEBROW. AFTER THESE TWO INJECTIONS, I INJECTED THE PROCERUS MUSCLE AT THE MIDLINE POINT BETWEEN THESE FIRST TWO INJECTIONS. THEN I PROCEEDED TO INJECT THE RIGHT AND LEFT FRONTALIS MUSCLE. TWO INJECTIONS WERE DONE IN EACH SIDE. THE FIRST INJECTION WAS DONE APPROXIMATELY 2 CM ABOVE THE FIRST INJECTION OF THE GENERAL MAINTENANCE TECHNICIAN. THE SECOND INJECTION WAS DONE APPROXIMATELY 1.5 CM LATERAL TO THIS FIST INJECTION OF THE FRONTALIS OF EACH SIDE. AFTER THE INJECTIONS OVER THE FOREHEAD WERE DONE, THE PATIENT'S HEAD WAS TURNED TO THE LEFT SIDE AND WE STARTED TO WORK WITH THE RIGHT TEMPORALIS MUSCLE. FIRST INJECTION WAS DONE IN A VERTICAL LINE OF THE TRAGUS APPROXIMATELY 3 CM ABOVE THE TRAGUS. THE SECOND INJECTION WAS DONE APPROXIMATELY 2 CM ABOVE THE FIRST INJECTION. THE THIRD INJECTION WAS DONE APPROXIMATELY 1 CM FORWARD FROM THIS VERTICAL LINE CREATED AT THE LEVEL OF THE TRAGUS, SENIOR LIVING BETWEEN THESE TWO INJECTIONS. THE FOURTH INJECTION WAS DONE APPROXIMATELY 1.5 CM BACK FROM THE SECOND INJECTION TO THE TEMPORALIS IN LINE TO THE MIDPORTION OF THE EAR. THEN, WE PROCEEDED TO INJECT THE LEFT TEMPORALIS MUSCLE. WE CLEANED THE AREA WITH ALCOHOL AND PROCEEDED TO PERFORM THE SAME FOR INJECTIONS DESCRIBED ABOVE BUT IN THE LEFT TEMPORALIS MUSCLE USING THE SAME LANDMARKS. AFTER THESE INJECTIONS WERE DONE, THE PATIENT WAS SEATED. FIRST, WE STARTED TO INJECT THE LEFT AND RIGHT OCCIPITALIS MUSCLE. I INJECTED AT THE FOLLOWING PLACES IN THE RIGHT AND LEFT MUSCLE. THE FIRST INJECTION WAS DONE AT THE MIDPOINT POSITION BETWEEN THE MASTOID PROCESS AND THE INION OF THE OCCIPITAL PROTUBERANCE. THE SECOND INJECTION WAS DONE APPROXIMATELY 1.5 CM SUPERIOR AND LATERAL OF THIS POINT. THE THIRD INJECTION WAS DONE APPROXIMATELY 1.5 CM SUPERIOR AND MEDIAL TO THIS FIRST INJECTION. NEXT, I PROCEEDED TO INJECT THE RIGHT AND LEFT PARASPINAL MUSCLES. LANDMARK OF THE INJECTION WERE APPROXIMATELY: FIRST INJECTION 3 CM BELOW THE INION AND 1 CM LATERAL TO THE MIDLINE AND SECOND INJECTION AT EACH SIDE WAS DONE APPROXIMATELY 1.5 CM SUPERIOR AND LATERAL OF THE FIRST INJECTION, 2.5 UNITS WERE INJECTED AT THESE AREAS. THE LAST GROUP OF INJECTIONS WAS DONE OVER THE RIGHT AND LEFT TRAPEZIUS MUSCLE OVER THE SHOULDERS AREA. THE FIRST INJECTION WAS DONE AT THE MIDPOINT BETWEEN THE INFLECTION POINT BETWEEN THE NECK AND SHOULDER AND THE ACROMION. THE SECOND AND THIRD INJECTIONS WERE DONE APPROXIMATELY 2.5 CM LATERAL AND MEDIAL FROM THIS FIRST INJECTION. SAME TARGETS WERE USED IN THE RIGHT AND LEFT SIDE. IN TOTAL, I INJECTED 145 UNITS OF BOTOX. THE MEDICATIONS WERE VERIFIED WITH THE NURSE. PROCEDURE WAS DONE WITHOUT EVIDENCE OF PARESTHESIA OR ANY COMPLICATIONS. THE PATIENT TOLERATED THE PROCEDURE VERY WELL. ESTIMATED BLOOD LOSS WAS LESS THAN 5 ML. THE PATIENT WAS SENT TO THE RECOVERY ROOM FOR OBSERVATIONS. INJECTIONS WERE DONE AFTER CLEANING WITH ALCOHOL, USING ASEPTIC TECHNIQUES POST PROCEDURE NOTE THE PROCEDURE DONE WAS DISCUSSED WITH THE PATIENT. THE PATIENT WILL BE SEEN IN A FOLLOW UP IN THE NEXT FEW WEEKS. I AM LOOKING FOR LONG LASTING PAIN RELIEF FOR THE PATIENT WITH THIS INTERVENTION. INSTRUCTIONS WERE GIVEN, QUESTIONS WERE ANSWERED, AND THE PATIENT EXPRESSED UNDERSTANDING AND AGREES WITH THE PLAN. I, ARDHA QUEZADA, DOCUMENTED THE ABOVE INFORMATION ACTING A SCRIBE FOR DR. STRICKLAND. I HAVE REVIEWED THE ABOVE DOCUMENT, WRITTEN BY RADHA QUEZADA, MORTGAGE CLOSING CLERK, AND I VERIFY THAT IT IS ACCURATE PROCEDURE CODES 90979 CHEMODENERV [employer] MIGRAINE DISPOSITION & COMMUNICATION FOLLOW UP FOLLOW UP WITH FOAM CUTTING SUPERVISOR (REASON: POST BOTOX INJECTIONS TO HEAD, NECK AND SHOULDER AREAS) ELECTRONICALLY SIGNED BY JOEL STRICKLAND MD, MD ON 03/01/2021 AT 12:13 PM EDT DISCLAIMER : THIS IS A VISIT SUMMARY EXTRACTED FROM THE [employer] CHART. IT IS NOT A COPY OF THE [employer] PROGRESS NOTE. JOHNATHAN
== END ==
LOC: M PAIN 10:40
PROVIDERS: ATTEND Anesthesiology
DX: G43.709 Chronic migraine without aura, not intractable, without status migrainosus (principal); F17.210 Nicotine dependence, cigarettes, uncomplicated; M54.81 Occipital neuralgia; G47.30 Sleep apnea, unspecified; E03.9 Hypothyroidism, unspecified; F41.9 Anxiety disorder, unspecified; M54.2 Cervicalgia; Z79.899 Other long term (current) drug therapy; Z88.1 Allergy status to other antibiotic agents; Z88.8 Allergy status to other drugs, medicaments and biological substances
CPT/HCPCS: 64615; J0585

== ENCOUNTER → 2021-05-03 | Outpatient (CLI) | payer MEDICARE, OTHER ==
[~2021-05-03] MED LIST changes: -BOTOX THERAPEUTIC 100 UNIT VIAL (J0585 PER 1 UNIT) IM ONE
== END ==
LOC: M PAIN 11:45
PROVIDERS: ATTEND Anesthesiology
DX: G89.29 Other chronic pain (principal); G43.709 Chronic migraine without aura, not intractable, without status migrainosus; M54.81 Occipital neuralgia; M54.5 Low back pain; G47.30 Sleep apnea, unspecified; E03.9 Hypothyroidism, unspecified; F41.9 Anxiety disorder, unspecified; M54.2 Cervicalgia; F17.210 Nicotine dependence, cigarettes, uncomplicated; Z79.899 Other long term (current) drug therapy; Z88.8 Allergy status to other drugs, medicaments and biological substances; Z88.1 Allergy status to other antibiotic agents

== ENCOUNTER → 2021-07-10 | Outpatient (CLI) | payer MEDICARE, OTHER ==
[~2021-07-10] MED LIST changes: +BOTOX THERAPEUTIC 100 UNIT VIAL (J0585 PER 1 UNIT) IM ONE
== END ==
LOC: M PAIN 10:40
PROVIDERS: ATTEND Anesthesiology
DX: G43.709 Chronic migraine without aura, not intractable, without status migrainosus (principal); M54.81 Occipital neuralgia; G47.30 Sleep apnea, unspecified; E03.9 Hypothyroidism, unspecified; F41.9 Anxiety disorder, unspecified; M54.2 Cervicalgia; F17.210 Nicotine dependence, cigarettes, uncomplicated; Z79.899 Other long term (current) drug therapy; Z88.1 Allergy status to other antibiotic agents; Z88.8 Allergy status to other drugs, medicaments and biological substances
CPT/HCPCS: 64615; J0585

== ENCOUNTER → 2021-11-09 | Outpatient (CLI) | payer MEDICARE, OTHER ==
[~2021-11-09] MED LIST changes: -BOTOX THERAPEUTIC 100 UNIT VIAL (J0585 PER 1 UNIT) IM ONE; +BUPR300T92 PO; +BUTA1CAP PO; +DICL20GE TP; +GABA-282 PO; +HYDR50TA70 PO; +K-TA10TA PO; +KP F1200 PO; +LASI20TA3 PO; +LEVO75TA4 PO; +MAGN400C2 PO; +PEPC40TA12 PO; +TIZA10TA PO; +TRAZ-189 PO; +VITMTA PO
== END ==
LOC: M LABSMTC 12:00
PROVIDERS: ATTEND Anesthesiology
DX: Z01.812 Encounter for preprocedural laboratory examination (principal); Z20.822 Contact with and (suspected) exposure to COVID-19

== ENCOUNTER 2021-11-14 10:40 | Day surgery (SDC) | payer MEDICARE, OTHER ==
[2021-11-14] VITALS (9 sets, daily range): BP systolic 86–100; BP diastolic 56–67
[~2021-11-14] VITALS: Ht 160 cm; Wt 60.3 kg
[~2021-11-14 10:40] MED LIST changes: +LR 1,000 ML IV ONE; +PERC5TAB12 PO; +ceFAZolin SOD 2 GM in IV 1 EA IV ONE
[2021-11-14] MEDS ORDERED: PHENYLephrine 500MCG 5ML (100MCG/ML) SYRINGE ONE (10:41)
[2021-11-14] MEDS ORDERED: FLUORESCEIN 10% (100MG/ML) 5 ML VIAL As Ordered ONE (10:53)
[2021-11-14] MEDS ORDERED: BUPIVACAINE/EPIN 0.25% 30 ML VIAL As Ordered ONE (10:53)
[2021-11-14] MEDS ORDERED: KETOROLAC 60MG 2ML VIAL As Ordered ONE (11:32)
[2021-11-14] MEDS ORDERED: ACETAMINOPHEN 1000MG 100ML IV BTL (OFIRMEV) (J0131 PER 10MG) As Ordered ONE (11:32)
[2021-11-14] MEDS ORDERED: METOCLOPRAMIDE INJ 10MG/2ML VIAL (J2765 PER 1) As Ordered ONE (11:32)
[2021-11-14] MEDS ORDERED: SUGAMMADEX SODIUM 500 MG/5 ML VIAL (BRIDION) As Ordered ONE (11:32)
[2021-11-14] MEDS ORDERED: propofoL 200 MG/20 ML VIAL As Ordered ONE (11:32)
[2021-11-14] MEDS ORDERED: ROCURONIUM BROMIDE 50 MG/5 ML VIAL As Ordered ONE (11:32)
[2021-11-14] MEDS ORDERED: dexameTHASONE 4 MG/ML 1ML VIAL (J1100 PER 1MG) As Ordered ONE (11:32)
[2021-11-14] MEDS ORDERED: ONDANSETRON 4MG/2ML VIAL As Ordered ONE (11:32)
[2021-11-14] MEDS ORDERED: LIDOCAINE 2% 100MG/5ML SDV (FOR ANES.) As Ordered ONE (11:32)
[2021-11-14] MEDS ORDERED: MURO5OIN (11:33)
[2021-11-14] MEDS ORDERED: POLY2.5S (11:33)
[2021-11-14] MEDS ORDERED: fentaNYL 100 MCG/2 ML INJECTION As Ordered ONE (11:35)
[2021-11-14] MEDS ORDERED: MIDAZOLAM INJ 2MG/2ML VIAL (J2250 PER 1MG) As Ordered ONE (11:35)
[2021-11-14 11:44] LABS: HEMATOCRIT 41.4 % (36.0-47.0); HEMOGLOBIN 13.5 g/dl (12.0-15.5); MEAN CORPUSCULAR HEMOGLOBIN 30.3 pg (27.0-33.0); MEAN CORPUSCULAR HGB CONC 32.6 g/dl (32.0-36.5); MEAN CORPUSCULAR VOLUME 92.8 fl (80.0-96.0); PLATELET COUNT, AUTOMATED 270 10^3/uL (150-450); RED BLOOD COUNT 4.46 10^6/uL (4.00-5.40); WHITE BLOOD COUNT 5.4 10^3/uL (4.0-10.0)
[2021-11-14] MEDS ORDERED: VASOPRESSIN INJ 20 UNITS/ML VIAL As Ordered ONE (11:59)
[2021-11-14 12:12] LABS: ALBUMIN 3.7 GM/DL (3.2-5.2); ALT/SGPT 24 U/L (12-78); BILIRUBIN,TOTAL 0.3 MG/DL (0.2-1.0); BLOOD UREA NITROGEN 9 MG/DL (7-18); CALCIUM LEVEL 8.8 MG/DL (8.8-10.2); CARBON DIOXIDE LEVEL 26 MEQ/L (21-32); CHLORIDE LEVEL 112 MEQ/L (98-107); CREATININE FOR GFR 0.81 MG/DL (0.55-1.30); GLOMERULAR FILTRATION RATE > 60.0 (>45); GLUCOSE, FASTING 101 MG/DL (70-100); POTASSIUM SERUM 4.1 MEQ/L (3.5-5.1); SODIUM LEVEL 142 MEQ/L (136-145); TOTAL PROTEIN 7.3 GM/DL (6.4-8.2)
[2021-11-14] MEDS: ePHEDrine SULFATE 25 MG/5 ML(5MG/ML) SYRINGE IV PRN ×4 (15:00→15:35)
[2021-11-14] MEDS ORDERED: fentaNYL 100 MCG/2 ML INJECTION IV PRN (15:15)
[2021-11-14] MEDS ORDERED: ONDANSETRON 4MG/2ML VIAL IV PRN (15:15)
[2021-11-14] MEDS ORDERED: oxyCODONE 5MG TAB PO PRN (15:15)
[2021-11-14] MEDS ORDERED: LR 1,000 ML IV SCH (15:15)
[2021-11-14] MEDS ORDERED: ePHEDrine SULFATE 25 MG/5 ML(5MG/ML) SYRINGE IV PRN (15:40)
[2021-11-14] MEDS ORDERED: CALCIUM CHLORIDE 10% 1 GM/10 ML SYR As Ordered ONE (15:52)
[2021-11-14] MEDS ORDERED: CALCIUM CHLORIDE 10% 1 GM/10 ML SYR IV SCH (16:00)
[2021-11-14 16:40] LABS: HEMATOCRIT 29.8 % (36.0-47.0); MEAN CORPUSCULAR HEMOGLOBIN 30.6 pg (27.0-33.0); MEAN CORPUSCULAR HGB CONC 32.6 g/dl (32.0-36.5); PLATELET COUNT, AUTOMATED 280 10^3/uL (150-450); RED BLOOD COUNT 3.17 10^6/uL (4.00-5.40)
[2021-11-14 16:47] LABS: HEMOGLOBIN 9.7 g/dl (12.0-15.5)
[2021-11-14] MEDS ORDERED: PROPARACAINE 0.5% OPHTH SOL 15ML OS PRN (17:55)
[2021-11-14] MEDS: LR 1,000 ML IV SCH ×2 (18:24→23:20)
[2021-11-14] MEDS: PERCOCET 5MG/325MG TAB PO PRN (20:12)
[2021-11-14] MEDS: IBUPROFEN 800 MG TAB PO SCH (22:00)
[2021-11-15] VITALS (12 sets, daily range): BP systolic 91–118; BP diastolic 60–68
[2021-11-15] MEDS: PERCOCET 5MG/325MG TAB PO PRN ×2 (03:19→08:47)
[2021-11-15] MEDS: IBUPROFEN 800 MG TAB PO SCH ×2 (04:00→10:14)
[2021-11-15 08:18] LABS: HEMATOCRIT 21.8 % (36.0-47.0); MEAN CORPUSCULAR HEMOGLOBIN 30.1 pg (27.0-33.0); MEAN CORPUSCULAR HGB CONC 32.6 g/dl (32.0-36.5); MEAN CORPUSCULAR VOLUME 92.4 fl (80.0-96.0); PLATELET COUNT, AUTOMATED 208 10^3/uL (150-450); RED BLOOD COUNT 2.36 10^6/uL (4.00-5.40); WHITE BLOOD COUNT 8.3 10^3/uL (4.0-10.0)
[2021-11-15 08:31] LABS: HEMOGLOBIN 7.1 g/dl (12.0-15.5)
[2021-11-15 16:24] LABS: HEMATOCRIT 29.1 % (36.0-47.0)
[2021-11-15 16:32] LABS: HEMOGLOBIN 9.7 g/dl (12.0-15.5)
== END 2021-11-15 17:19 | disposition home or self-care (01) ==
LOC: M SDC 10:40 → M MSPAV 18:15 → M SDC 11-15 17:19
PROVIDERS: ATTEND Obstetrics & Gynecology
DX: N81.2 Incomplete uterovaginal prolapse (principal); N88.8 Other specified noninflammatory disorders of cervix uteri; R10.2 Pelvic and perineal pain; E03.9 Hypothyroidism, unspecified; G43.909 Migraine, unspecified, not intractable, without status migrainosus; M54.9 Dorsalgia, unspecified; F32.A Depression, unspecified; G47.00 Insomnia, unspecified; M48.02 Spinal stenosis, cervical region; M51.36 Other intervertebral disc degeneration, lumbar region; M47.9 Spondylosis, unspecified; B00.9 Herpesviral infection, unspecified; Q23.1 Congenital insufficiency of aortic valve; K21.9 Gastro-esophageal reflux disease without esophagitis; G47.30 Sleep apnea, unspecified; R06.83 Snoring; Z98.84 Bariatric surgery status; Z87.891 Personal history of nicotine dependence; Z88.1 Allergy status to other antibiotic agents; Z88.8 Allergy status to other drugs, medicaments and biological substances; Z79.899 Other long term (current) drug therapy
CPT/HCPCS: 36415; 36430; 57250; 58260; 80053; 85014; 85018; 85027; 86850; 86900; 86901; 86920; 88302; 88307; 93005; 96360; 96361; J0131; J0690; J1100; J1885; J2250; J2370; J2405; J2765; J3010; P9016